=== PATIENT | male | born 1940 | race African-American/Black ===

== ENCOUNTER 2016-10-31 14:09 | Inpatient (IN) | payer MEDICARE, MEDICAID ==
[~2016-10-31] VITALS: Ht 177.8 cm; Wt 79.4 kg
[~2016-10-31 14:09] MED LIST: ANTIVERT25 MG ORAL; CARDIZEM90 MG ORAL; ECOTRIN81 MG ORAL; MIRALAX17 GM ORAL; PROAIR HFA8.5 GM INH
[2016-10-31] MEDS ORDERED: LISINOPRIL5 MG ORAL (14:58)
[2016-10-31] MEDS ORDERED: METOPROLOL SUCC25 MG ORAL (14:58)
[2016-10-31 15:15] VITALS: BP 139/77
[2016-10-31] MEDS ORDERED: Ketorolac 30mg Inj IV ONE (16:00)
[2016-10-31] MEDS ORDERED: Morphine Sulfate 2mg/ml Inj IVP ONE (16:00)
[2016-10-31 17:11] LABS: BASOPHILS % (AUTO) 2.1 % (0.0-2.0); EOSINOPHILS % (AUTO) 1.3 % (0.0-3.0); LYMPHOCYTES % (AUTO) 21.8 % (20.0-45.0); MEAN CORPUSCULAR HGB CONC 34.5 G/DL (32.0-36.0); MEAN CORPUSCULAR VOLUME 90 FL (80-99); MONOCYTES % (AUTO) 11.2 % (1.0-10.0); NEUTROPHILS % (AUTO) 63.6 % (45.0-75.0); PLATELET COUNT 176 K/UL (150-450); RED BLOOD COUNT 4.08 M/UL (4.70-6.10); RED CELL DISTRIBUTION WIDTH 11.6 % (11.6-14.8); WHITE BLOOD COUNT 4.8 K/UL (4.8-10.8)
[2016-10-31 17:12] LABS: APPEARANCE,URINE CLEAR; KETONES,URINE NEGATIVE (NEGATIVE); LEUKOCYTE ESTERASE ,URINE NEGATIVE (NEGATIVE); NITRITE,URINE NEGATIVE (NEGATIVE); PH,URINE 6.5 (4.5-8.0); PROTEIN,URINE NEGATIVE (NEGATIVE); UROBILINOGEN,URINE NORMAL MG/DL (0.0-1.0)
[2016-10-31 17:27] LABS: PROTHROMBIN TIME 10.3 SEC (9.30-11.50)
[2016-10-31 17:29] VITALS: BP 148/91
[2016-10-31 17:31] LABS: ALANINE AMINOTRANSFERASE 15 U/L (3-41); ALBUMIN/GLOBULIN RATIO 1.1 (1.0-2.7); ANION GAP 13 (5-15); ASPARTATE AMINO TRANSFERASE 31 U/L (5-40); CALCIUM 9.2 mg/dL (8.6-10.2); CARBON DIOXIDE 27 mEQ/L (20-30); CHLORIDE 103 mEQ/L (98-107); CREATININE 1.3 mg/dL (0.7-1.2); HEMOLYSIS 76; POTASSIUM 4.7 mEQ/L (3.4-4.9); SODIUM 143 mEQ/L (135-145); TOTAL PROTEIN 6.5 g/dL (6.6-8.7); TROPONIN I < 0.30 ng/mL (<=0.30)
--- NOTE | 2016-10-31 17:40 | Diagnostic Imaging Report ---
Indications: Altered metal status, fall x1 day Technique: Spiral acquisitions obtained through the brain. Angled axial and coronal 5 x 5 mm slices were reconstructed. Total dose length product 1386 mGycm. CTDI vol(s) 70 mGy Comparison: 04/16/2015 Findings: No acute hemorrhage or edema. No mass effect or midline shift. Normal size for age ventricles and extra-axial CSF spaces. There is mild periventricular deep white matter chronic ischemic change. The calvarium is intact. There is minimal ethmoid sinus disease. No significant interim change Impression: Mild age-related changes. Negative for acute intracranial bleed or mass effect. The CT scanner at [facility] is accredited by the [employer] and the scans are performed using protocols designed to limit radiation exposure to as low as reasonably achievable to attain images of sufficient resolution adequate for diagnostic evaluation.
--- NOTE | 2016-10-31 18:05 | Diagnostic Imaging Report ---
Indication: TRAUMA, chest pain Technique: One view of the chest Comparison: 04/16/2015 Findings: Left chest bifocal pacemaker again demonstrated. The lungs and pleural spaces are clear. The heart size is normal. No significant change Impression: No acute process
--- NOTE | 2016-10-31 18:08 | Diagnostic Imaging Report ---
Indication: TRAUMA Technique: 2 views of the right hip, one view the pelvis Comparison: None Findings: Questionable lucency is seen through the right femoral head neck junction. No definite pelvic fracture. There are degenerative changes of the lumbosacral junction. The joint spaces are preserved. The left hip appears intact. Impression: Questionable lucency through the right femoral head neck junction, probably representing overlying soft tissues but fracture not completely excludable. Consider cross-sectional imaging for further evaluation if there is high clinical suspicion Findings previously discussed by phone with Dr. Walters in the emergency room
[2016-10-31] MEDS ORDERED: Mylanta II UD 30ml ORAL PRN (18:45)
[2016-10-31] MEDS ORDERED: LORazepam Inj 2mg/ml 1ml IV PRN (18:45)
[2016-10-31] MEDS ORDERED: Nitroglycerin Subl 0.4mg tab (Bottle Of 25) SL PRN (18:45)
[2016-10-31] MEDS ORDERED: Miralax 17gm pkt ORAL PRN (18:45)
[2016-10-31] MEDS ORDERED: Morphine Sulfate 2mg/ml Inj IVP PRN (18:45)
[2016-10-31] MEDS ORDERED: DuoNeb 0.5-3(2.5)mg/3ml neb HHN PRN (18:45)
[2016-10-31] MEDS: Heparin 5000 units/ml inj SUBQ SCH (22:00)
[2016-11-01 00:13] VITALS: BP 139/81
--- NOTE | 2016-11-01 03:34 | Emergency Room Report ---
History of Present Illness General Chief Complaint: Multiple Trauma/Fall Source: Patient, Family Member Present Illness HPI Patient with multiple falling episodes over past few days. Increased weakness. Pain in R hip, R flank and also R chest wall. No medication taken. Pain now 10 /10 mostly ribs and hip. Denies head trauma. Falling due to several factors but mainly c/o weak and numb on R side. Pain is sharp and aching, constant and worse with movement and weight bearing. See below regarding prior weakness. Now c/o numbness of R arm and leg. Also c/o pain in groin/perineum. No rash or dysuria. No trauma to that area. Slight ARIAS. Recently, weakness due to spinal stenosis. Consideration for back operation though concern about medical stability. No incontinence. They state PMD aware of this problem. No fevers, cough. Some SOB with exertion. No rashes. Allergies: Coded Allergies: No Known Allergies (Verified Allergy, Unknown, 07/04/09) Patient History Past Medical History: see triage record Past Surgical History: pacemaker Social History: Denies: smoking Social History Narrative home by self. Here with daughters. Reviewed Nursing Documentation: PMH: Agreed, PSxH: Agreed Nursing Documentation-PMH Past Medical History: Deferred Hx Cardiac Problems: Yes Hx Hypertension: Yes Hx Pacemaker: Yes Hx Asthma: Yes Hx Cancer: Yes Hx Gastrointestinal Problems: No Hx Neurological Problems: Yes Hx Cerebrovascular Accident: Yes Hx Dizziness: Yes Review of Systems All Other Systems: negative except mentioned in HPI Physical Exam Vital Signs Date Time Temp Pulse Resp B/P Pulse Ox O2 Delivery O2 Flow Rate FiO2 10/31/16 14:50 97.9 66 20 159/71 100 Room Air 10/31/16 20:50 21 Sp02 EP Interpretation: reviewed, normal General Appearance: well appearing, no apparent distress, GCS 15 Head: normocephalic, atraumatic Eyes: bilateral eye EOMI, bilateral eye PERRL, bilateral eye normal inspection ENT: moist mucus membranes Neck: supple Respiratory: lungs clear, normal breath sounds, other - R lower chest wall tenderness, no crepetence or referred pain (almost more in flank area) Cardiovascular #1: regular rate, rhythm Cardiovascular #2: 2+ radial (R) Gastrointestinal: normal inspection, normal bowel sounds, no mass, non- distended, no guarding, no rebound, other - Slight R flank tenderness Genitourinary: normal inspection, penis normal, other - perineum not tender Musculoskeletal: digits/nails normal, normal range of motion - with some pain with SLR R, tender - R hip Neurologic: oriented x3, behavioral health therapist III-XII nml as tested, motor strength/tone normal , DTRs symmetric, cerebellar normal, speech normal, sensory deficit - subjective R side (then reports L arm also), other - not observe gait Psychiatric: mood/affect normal Skin: normal inspection, warm/dry, other - no bruises noted Medical Decision Making Diagnostic Impression: Primary Impression: Multiple injuries due to trauma Additional Impressions: CVA (cerebral vascular accident) Qualified Codes: I63.9 - Cerebral infarction, unspecified Spinal stenosis Qualified Codes: M48.07 - Spinal stenosis, lumbosacral region ER Course Patient presents with falls due to weakness and numbness on R side which for 2- 3 days is worse,. Ddx: cva, spinal stenosis, occult infection, PARTS PROCESSOR process, electrolyte abnormality, fractures amongst others. Emergent evaluation with labs, CT, CXR, EKG. Treatment with observation and analgesia. Labs unremarkable except for mild renal insufficiency. CTs with DJD and spinal stenosis. No bleed or masses. Patient clinically with CVA versus spinal stenosis with weakness. Will be unable to perform MRI with pacer so neuro consult important. Improved pain with analgesia. Patient not safe to return to home by self. Will need neuro eval. and prob placement in rehab. Admit telemetry Dr. Mancera. Laboratory Tests Test 10/31/16 16:45 White Blood Count 4.8 K/UL (4.8-10.8) Red Blood Count 4.08 M/UL (4.70-6.10) L Hemoglobin 12.6 G/DL (14.2-18.0) L Hematocrit 36.7 % (42.0-52.0) L Mean Corpuscular Volume 90 FL (80-99) Mean Corpuscular Hemoglobin 31.0 PG (27.0-31.0) Mean Corpuscular Hemoglobin Concent 34.5 G/DL (32.0-36.0) Red Cell Distribution Width 11.6 % (11.6-14.8) Platelet Count 176 K/UL (150-450) Mean Platelet Volume 7.0 FL (6.5-10.1) Neutrophils (%) (Auto) 63.6 % (45.0-75.0) Lymphocytes (%) (Auto) 21.8 % (20.0-45.0) Monocytes (%) (Auto) 11.2 % (1.0-10.0) H Eosinophils (%) (Auto) 1.3 % (0.0-3.0) Basophils (%) (Auto) 2.1 % (0.0-2.0) H Prothrombin Time 10.3 SEC (9.30-11.50) Prothrombin Time INR 1.0 (0.9-1.1) PTT 26 SEC (23-33) Urine Color Pale yellow Urine Appearance Clear Urine pH 6.5 (4.5-8.0) Urine Specific [place] 1.005 (1.005-1.035) Urine Protein Negative (NEGATIVE) Urine Glucose (UA) Negative (NEGATIVE) Urine Ketones Negative (NEGATIVE) Urine Occult Blood Negative (NEGATIVE) Urine Nitrite Negative (NEGATIVE) Urine Bilirubin Negative (NEGATIVE) Urine Urobilinogen Normal MG/DL (0.0-1.0) Urine Leukocyte Esterase Negative (NEGATIVE) Sodium Level 143 mEQ/L (135-145) Potassium Level 4.7 mEQ/L (3.4-4.9) Chloride Level 103 mEQ/L (98-107) Carbon Dioxide Level 27 mEQ/L (20-30) Anion Gap 13 (5-15) Blood Urea Nitrogen 18 mg/dL (7-23) Creatinine 1.3 mg/dL (0.7-1.2) H Estimate Glomerular Filtration Rate mL/min (>60) Glucose Level 90 mg/dL (74-106) Calcium Level 9.2 mg/dL (8.6-10.2) Total Bilirubin 0.3 mg/dL (0.0-1.2) Aspartate Amino Transferase (AST) 31 U/L (5-40) Alanine Aminotransferase (ALT) 15 U/L (3-41) Alkaline Phosphatase 61 U/L (40-129) Total Creatine Kinase 329 U/L (38-174) H Troponin I < 0.30 ng/mL (<=0.30) Pro-B-Type Natriuretic Peptide 391 pg/mL (0-450) Total Protein 6.5 g/dL (6.6-8.7) L Albumin 3.5 g/dL (3.5-5.2) Globulin 3.0 g/dL Albumin/Globulin Ratio 1.1 (1.0-2.7) EKG Diagnostic Results Rate: other - paced Rhythm: other - paced ST Segments: no acute changes Rhythm Strip Diag. Results EP Interpretation: yes Rhythm: no PVC's, no ectopy, other - paced Chest X-Ray Diagnostic Results EP Interpretation: Yes Findings: no consolidation, no effusion, no pneumothorax, other - pacer L Number of Views: 1 Other X-Ray Diagnostic Results Other X-Ray Diagnostic Results #1: X-Ray Ordered: pelvis EP Interpretation: Yes Findings: no fractures, no dislocation, no soft tissue swelling, other - djd Number of Views: 1 Other X-Ray Diagnostic Results #2: X-Ray Ordered: R hip EP Interpretation: Yes Findings: no fractures, no dislocation, no soft tissue swelling, other - djd (radiologist wants CT) Number of Views: 2 CT/MRI/US Diagnostic Results CT/MRI/US Diagnostic Results #1: Imaging Test Ordered: head Impression atrophy CT/MRI/US Diagnostic Results #2: Imaging Test Ordered: R hip Impression no fx, djd CT/MRI/US Diagnostic Results #3: Imaging Test Ordered: LS spine Impression Findings: No acute fractures. No dislocations. Bony alignment is normal. Vertebral body heights are preserved. At T11-12, there is mild neural foraminal stenosis due to facet hypertrophy. The disc space is preserved. At T12-L1 there are is bilateral facet degeneration. The disc space is preserved. No significant disc bulge protrusion, spinal stenosis, or neural foraminal stenosis. At L1-2, no significant disc bulge or protrusion, spinal stenosis, or neural foraminal stenosis. There is bilateral facet degeneration. At L2-3, there is vacuum disc formation. Mild circumferential annular bulge results in mild narrowing of the spinal canal. Facet degeneration results in mild left and moderate right neural foraminal stenosis. At L3-4, the disc space is preserved. There is vacuum formation. Mild circumferential annular bulge and ligamentum flavum hypertrophy results in mild central canal stenosis. There is mild narrowing of the neural foramina due to extensive facet proliferation. At L4-5, posterior disc bulge/osteophyte complex results in mild narrowing of the spinal canal. There is moderate neural foraminal stenosis due to facet degeneration. At L5-S1, no significant disc bulge or protrusion or spinal stenosis. Facet degenerative results in mild bilateral neural foraminal narrowing. The included extraspinal soft tissues are remarkable for the presence of colonic diverticulosis. What is probably a parenchymal calcification is seen in the right kidney. There is a 1 cm exophytic lesion of the posterior left kidney which demonstrates nonspecific attenuation, possibly but not definitively a hyperdense cyst. Impression: No acute bony trauma Degenerative changes, as detailed on a level by level basis above 1 cm exophytic lesion of the posterior left kidney. Possibly but not definitively a hyperdense cyst. Evaluation with renal ultrasound is recommended. Colonic diverticulosis incidentally noted Last Vital Signs Date Time Temp Pulse Resp B/P Pulse Ox O2 Delivery O2 Flow Rate FiO2 11/01/16 00:13 98.6 64 20 139/81 98 Room Air 10/31/16 20:50 21 Status: improved Disposition: ADMITTED INPATIENT Condition: Serious Referrals: Jayant Mancera MD (PCP) Naveed Walters M.D. Nov 01, 2016 03:34
[2016-11-01 08:00] VITALS: BP 153/78
[2016-11-01 08:26] LABS: MEAN CORPUSCULAR HEMOGLOBIN 30.1 PG (27.0-31.0); MEAN CORPUSCULAR HGB CONC 33.6 G/DL (32.0-36.0); MEAN CORPUSCULAR VOLUME 90 FL (80-99); MEAN PLATELET VOLUME 7.3 FL (6.5-10.1); PLATELET COUNT 202 K/UL (150-450); RED BLOOD COUNT 4.17 M/UL (4.70-6.10); WHITE BLOOD COUNT 3.3 K/UL (4.8-10.8)
[2016-11-01 08:30] LABS: PROTHROMBIN TIME 10.4 SEC (9.30-11.50)
--- NOTE | 2016-11-01 08:31 | Diagnostic Imaging Report ---
Indication: TRAUMA, fall, right hip pain Technique: No contrast, per trauma protocol. Spiral acquisitions obtained through the pelvis. Multiplanar reconstructions were generated. Total dose length product 351 mGycm. CTDIvol(s) 11 mGy. Radiation dose was minimized using automated exposure control Comparison: None Findings: No evidence of acute fracture or dislocation. There are mild degenerative proliferative changes of both hip joints. There are extensive degenerative changes of the lumbosacral junction. There is ankylosis of the upper sacroiliac joints. The included pelvic viscera demonstrate colonic diverticulosis. Impression: No acute bony trauma Degenerative changes, as described Colonic diverticulosis This agrees with the preliminary interpretation provided overnight by Dr. Nguyen The CT scanner at [facility] is accredited by the [employer] and the scans are performed using protocols designed to limit radiation exposure to as low as reasonably achievable to attain images of sufficient resolution adequate for diagnostic evaluation.
--- NOTE | 2016-11-01 08:36 | Diagnostic Imaging Report ---
Indications: History of fall x1 day, low back pain Technique: Spiral acquisitions obtained through the lumbar spine. Multiplanar reconstructions were generated. No IV contrast utilized. Total dose length product 501 mGycm. CTDIvol(s) 13 mGy Comparison: None Findings: No acute fractures. No dislocations. Bony alignment is normal. Vertebral body heights are preserved. At T11-12, there is mild neural foraminal stenosis due to facet hypertrophy. The disc space is preserved. At T12-L1 there are is bilateral facet degeneration. The disc space is preserved. No significant disc bulge protrusion, spinal stenosis, or neural foraminal stenosis. At L1-2, no significant disc bulge or protrusion, spinal stenosis, or neural foraminal stenosis. There is bilateral facet degeneration. At L2-3, there is vacuum disc formation. Mild circumferential annular bulge results in mild narrowing of the spinal canal. Facet degeneration results in mild left and moderate right neural foraminal stenosis. At L3-4, the disc space is preserved. There is vacuum formation. Mild circumferential annular bulge and ligamentum flavum hypertrophy results in mild central canal stenosis. There is mild narrowing of the neural foramina due to extensive facet proliferation. At L4-5, posterior disc bulge/osteophyte complex results in mild narrowing of the spinal canal. There is moderate neural foraminal stenosis due to facet degeneration. At L5-S1, no significant disc bulge or protrusion or spinal stenosis. Facet degenerative results in mild bilateral neural foraminal narrowing. The included extraspinal soft tissues are remarkable for the presence of colonic diverticulosis. What is probably a parenchymal calcification is seen in the right kidney. There is a 1 cm exophytic lesion of the posterior left kidney which demonstrates nonspecific attenuation, possibly but not definitively a hyperdense cyst. Impression: No acute bony trauma Degenerative changes, as detailed on a level by level basis above 1 cm exophytic lesion of the posterior left kidney. Possibly but not definitively a hyperdense cyst. Evaluation with renal ultrasound is recommended. Colonic diverticulosis incidentally noted The CT scanner at [facility] is accredited by the [employer] and the scans are performed using protocols designed to limit radiation exposure to as low as reasonably achievable to attain images of sufficient resolution adequate for diagnostic evaluation.
[2016-11-01 08:51] LABS: ALANINE AMINOTRANSFERASE 13 U/L (3-41); ALBUMIN/GLOBULIN RATIO 1.2 (1.0-2.7); ANION GAP 14 (5-15); ASPARTATE AMINO TRANSFERASE 22 U/L (5-40); CALCIUM 8.9 mg/dL (8.6-10.2); CARBON DIOXIDE 27 mEQ/L (20-30); CHLORIDE 103 mEQ/L (98-107); CHOLESTEROL 198 mg/dL (< 200); CHOLESTEROL/HDL RATIO 3.2 (3.3-4.4); CREATININE 1.5 mg/dL (0.7-1.2); HEMOLYSIS 6; LDL CHOLESTEROL (CALC.) 123 mg/dL (60-99); POTASSIUM 3.8 mEQ/L (3.4-4.9); SODIUM 144 mEQ/L (135-145); TOTAL PROTEIN 6.1 g/dL (6.6-8.7)
[2016-11-01] MEDS ORDERED: Diltiazem CD 180mg cap ORAL SCH (09:00)
[2016-11-01] MEDS: Aspirin EC 81mg tab ORAL SCH (09:46)
[2016-11-01] MEDS: Heparin 5000 units/ml inj SUBQ SCH ×2 (09:47→21:04)
[2016-11-01] MEDS: Lisinopril 10mg tab ORAL SCH (09:50)
[2016-11-01 10:42] LABS: BAND NEUTROPHILS % (MANUAL) 0 % (0-8); BASOPHILS % (MANUAL) 1 % (0-2); EOSINOPHILS % (MANUAL) 2 % (0-3); LYMPHOCYTES % (MANUAL) 38 % (20-45); NEUTROPHILS % (MANUAL) 46 % (45-75); PLATELET ESTIMATE ADEQUATE; PLATELET MORPHOLOGY NORMAL; TOTAL CELLS COUNTED 100
--- NOTE | 2016-11-01 14:09 | Consultation ---
History of Present Illness General Date patient seen: Nov 01, 2016 Chief Complaint: Multiple Trauma/Fall Reason for Consultation: chest pain Present Illness HPI 76 year old male with hx of pace maker, spinal stenosis, brought in by paramedics because of multiple falling episodes over past few days. Increased weakness. Pain in R hip, R flank and also R chest wall after falling from bed. His right chest pain is worse with any movement. No fevers, cough. Some SOB with exertion. No rashes. Allergies: Coded Allergies: No Known Allergies (Verified Allergy, Unknown, 07/04/09) Medication History Scheduled Albuterol Sulfate* (Proair Hfa*), 2 PUFFS INH Q6H, (Reported) Aspirin (Ecotrin), 81 MG ORAL DAILY Lisinopril (Lisinopril*), Unknown Dose ORAL DAILY, (Reported) Meclizine Hcl* (Antivert*), 25 MG ORAL Q8HR Metoprolol Succinate* (Metoprolol Succinate*), Unknown Dose ORAL DAILY, ( Reported) Scheduled PRN Polyethylene Glycol* (Miralax*), 17 GM ORAL DAILYPRN PRN for Constipation Miscellaneous Medications Diltiazem HCl (Diltiazem HCl), 180 MG ORAL, (Reported) Patient History Healthcare decision maker pt alert and oriented Resuscitation status Full Code Advanced Directive on File No Past Medical/Surgical History Past Medical/Surgical History: (1) Spinal stenosis (2) CVA (cerebral vascular accident) Review of Systems Constitutional: Reports: weakness Musculoskeletal: Reports: other - left groin pain All Other Systems: negative except mentioned in HPI Physical Exam Lines, tubes and drains: peripheral, central line HEENT: normocephalic, atraumatic Neck: non-tender, normal alignment Respiratory/Chest: chest wall non-tender, lungs clear Breasts: no masses Cardiovascular/Chest: normal peripheral pulses Abdomen: normal bowel sounds, non tender Genitourinary/Rectal: normal genital exam Extremities: normal range of motion Last 24 Hour Vital Signs Date Time Temp Pulse Resp B/P Pulse Ox O2 Delivery O2 Flow Rate FiO2 11/01/16 09:50 62 153/78 11/01/16 09:50 153/78 11/01/16 09:50 62 153/78 11/01/16 08:00 95.9 55 17 153/78 95 Room Air 60 11/01/16 07:40 68 18 Room Air 21 11/01/16 04:00 60 11/01/16 00:13 98.6 64 20 139/81 98 Room Air 11/01/16 00:00 60 10/31/16 20:50 62 18 Room Air 21 10/31/16 19:50 63 17 122/79 100 Room Air 10/31/16 17:29 64 16 148/91 99 Room Air 10/31/16 17:02 98.3 10/31/16 17:02 98.3 10/31/16 15:15 98.3 63 19 139/77 100 Room Air 10/31/16 14:50 97.9 66 20 159/71 100 Room Air Intake and Output 10/31/16 11/01/16 19:00 07:00 Output Total 600 ml Balance -600 ml Output Urine Total 600 ml Laboratory Tests Test 10/31/16 16:45 11/01/16 07:47 White Blood Count 4.8 K/UL (4.8-10.8) 3.3 K/UL (4.8-10.8) L Red Blood Count 4.08 M/UL (4.70-6.10) L 4.17 M/UL (4.70-6.10) L Hemoglobin 12.6 G/DL (14.2-18.0) L 12.6 G/DL (14.2-18.0) L Hematocrit 36.7 % (42.0-52.0) L 37.4 % (42.0-52.0) L Mean Corpuscular Volume 90 FL (80-99) 90 FL (80-99) Mean Corpuscular Hemoglobin 31.0 PG (27.0-31.0) 30.1 PG (27.0-31.0) Mean Corpuscular Hemoglobin Concent 34.5 G/DL (32.0-36.0) 33.6 G/DL (32.0-36.0) Red Cell Distribution Width 11.6 % (11.6-14.8) 12.0 % (11.6-14.8) Platelet Count 176 K/UL (150-450) 202 K/UL (150-450) Mean Platelet Volume 7.0 FL (6.5-10.1) 7.3 FL (6.5-10.1) Neutrophils (%) (Auto) 63.6 % (45.0-75.0) % (45.0-75.0) Lymphocytes (%) (Auto) 21.8 % (20.0-45.0) % (20.0-45.0) Monocytes (%) (Auto) 11.2 % (1.0-10.0) H % (1.0-10.0) Eosinophils (%) (Auto) 1.3 % (0.0-3.0) % (0.0-3.0) Basophils (%) (Auto) 2.1 % (0.0-2.0) H % (0.0-2.0) Prothrombin Time 10.3 SEC (9.30-11.50) 10.4 SEC (9.30-11.50) Prothromb Time International Ratio 1.0 (0.9-1.1) 1.0 (0.9-1.1) Activated Partial Thromboplast Time 26 SEC (23-33) 27 SEC (23-33) Urine Color Pale yellow Urine Appearance Clear Urine pH 6.5 (4.5-8.0) Urine Specific [place] 1.005 (1.005-1.035) Urine Protein Negative (NEGATIVE) Urine Glucose (UA) Negative (NEGATIVE) Urine Ketones Negative (NEGATIVE) Urine Occult Blood Negative (NEGATIVE) Urine Nitrite Negative (NEGATIVE) Urine Bilirubin Negative (NEGATIVE) Urine Urobilinogen Normal MG/DL (0.0-1.0) Urine Leukocyte Esterase Negative (NEGATIVE) Sodium Level 143 mEQ/L (135-145) 144 mEQ/L (135-145) Potassium Level 4.7 mEQ/L (3.4-4.9) 3.8 mEQ/L (3.4-4.9) Chloride Level 103 mEQ/L (98-107) 103 mEQ/L (98-107) Carbon Dioxide Level 27 mEQ/L (20-30) 27 mEQ/L (20-30) Anion Gap 13 (5-15) 14 (5-15) Blood Urea Nitrogen 18 mg/dL (7-23) 22 mg/dL (7-23) Creatinine 1.3 mg/dL (0.7-1.2) H 1.5 mg/dL (0.7-1.2) H Estimat Glomerular Filtration Rate mL/min (>60) mL/min (>60) Glucose Level 90 mg/dL (74-106) 87 mg/dL (74-106) Calcium Level 9.2 mg/dL (8.6-10.2) 8.9 mg/dL (8.6-10.2) Total Bilirubin 0.3 mg/dL (0.0-1.2) 0.3 mg/dL (0.0-1.2) Aspartate Amino Transf (AST/SGOT) 31 U/L (5-40) 22 U/L (5-40) Alanine Aminotransferase (ALT/SGPT) 15 U/L (3-41) 13 U/L (3-41) Alkaline Phosphatase 61 U/L (40-129) 59 U/L (40-129) Total Creatine Kinase 329 U/L (38-174) H Troponin I < 0.30 ng/mL (<=0.30) Pro-B-Type Natriuretic Peptide 391 pg/mL (0-450) Total Protein 6.5 g/dL (6.6-8.7) L 6.1 g/dL (6.6-8.7) L Albumin 3.5 g/dL (3.5-5.2) 3.4 g/dL (3.5-5.2) L Globulin 3.0 g/dL 2.7 g/dL Albumin/Globulin Ratio 1.1 (1.0-2.7) 1.2 (1.0-2.7) Differential Total Cells Counted 100 Neutrophils % (Manual) 46 % (45-75) Lymphocytes % (Manual) 38 % (20-45) Monocytes % (Manual) 13 % (1-10) H Eosinophils % (Manual) 2 % (0-3) Basophils % (Manual) 1 % (0-2) Band Neutrophils 0 % (0-8) Platelet Estimate Adequate Platelet Morphology Normal Red Blood Cell Morphology Normal Triglycerides Level 70 mg/dL (< 150) Cholesterol Level 198 mg/dL (< 200) LDL Cholesterol 123 mg/dL (60-99) H HDL Cholesterol 61 mg/dL (> 60) H Cholesterol/HDL Ratio 3.2 (3.3-4.4) L Thyroid Stimulating Hormone (TSH) 1.760 uIU/mL (0.300-4.500) Height (Feet): 5 Height (Inches): 10.00 Weight (Pounds): 175 Medications Current Medications Medications (Trade) Dose Ordered Sig/Gloria Route PRN Reason Start Time Stop Time Status Last Admin Dose Admin Acetaminophen (Tylenol) 650 mg Q4H PRN ORAL fever 10/31/16 18:45 11/30/16 18:44 Al Hydroxide/Mg Hydroxide (Mylanta II) 30 ml Q6H PRN ORAL dyspepsia 10/31/16 18:45 11/30/16 18:44 Albuterol/ Ipratropium (DuoNeb 0.5-3(2.5)mg/3ml) 3 ml Q4H PRN HHN Shortness of Breath 10/31/16 18:45 11/05/16 18:44 Aspirin (Ecotrin) 81 mg DAILY ORAL 11/01/16 09:00 12/01/16 08:59 11/01/16 09:46 Clonidine HCl (Catapres) 0.1 mg Q4H PRN ORAL SBP > 160 10/31/16 18:45 11/30/16 18:44 Dextrose (Dextrose 50%) STAT PRN IV Hypoglycemia 10/31/16 18:45 11/30/16 18:44 Diltiazem HCl (Cardizem CD) 180 mg DAILY ORAL 11/01/16 09:00 12/01/16 08:59 11/01/16 09:50 Heparin Sodium (Porcine) (Heparin 5000 units/ml) 5,000 units EVERY 12 HOURS SUBQ 10/31/16 21:00 11/30/16 20:59 11/01/16 09:47 Lisinopril (Zestril) 10 mg DAILY ORAL 11/01/16 09:00 12/01/16 08:59 11/01/16 09:50 Lorazepam (Ativan 2mg/ml 1ml) 0.5 mg Q4H PRN IV For Anxiety 10/31/16 18:45 11/07/16 18:44 Metoprolol Succinate (Toprol XL) 25 mg DAILY ORAL 11/01/16 09:00 12/01/16 08:59 11/01/16 09:50 Morphine Sulfate (Morphine Sulfate) 1 mg Q4H PRN IVP For Pain 7-10 10/31/16 18:45 11/07/16 18:44 Nitroglycerin (Ntg) 0.4 mg Q5M X 3 DOSES PRN SL Prn Chest Pain 10/31/16 18:45 11/30/16 18:44 Ondansetron HCl (Zofran) 4 mg Q6H PRN IVP Nausea & Vomiting 10/31/16 18:45 11/30/16 18:44 Polyethylene Glycol (Miralax) 17 gm HSPRN PRN ORAL Constipation 10/31/16 18:45 11/30/16 18:44 Temazepam (Restoril) 15 mg HSPRN PRN ORAL Insomnia 10/31/16 18:45 11/07/16 18:44 Assessment/Plan Problem List: (1) ACS (acute coronary syndrome) ICD Codes: I24.9 - Acute ischemic heart disease, unspecified SNOMED: 314829703 (2) Dizziness ICD Codes: R42 - Dizziness and giddiness SNOMED: 096404329 (3) Multiple injuries due to trauma ICD Codes: T07 - Unspecified multiple injuries SNOMED: 852147946 (4) Spinal stenosis ICD Codes: M48.00 - Spinal stenosis, site unspecified SNOMED: 72612102 Qualifiers: Qualified Codes: M48.07 - Spinal stenosis, lumbosacral region (5) CVA (cerebral vascular accident) ICD Codes: I63.9 - Cerebral infarction, unspecified SNOMED: 166627239 Qualifiers: Qualified Codes: I63.9 - Cerebral infarction, unspecified (6) Pacemaker ICD Codes: Z95.0 - Presence of cardiac pacemaker SNOMED: 003258732, 231265307 Assessment/Plan telemetry monitoring cardio evaluation symptomatic treatment check out pace maker pt/ot titrate fio2 to sat of 92% dvt prophylaxis JAYDE ADAMS Nov 01, 2016 14:07
--- NOTE | 2016-11-01 14:42 | Neurology Progress Note ---
Objective Physical Exam Last Vital Signs Date Time Temp Pulse Resp B/P Pulse Ox O2 Delivery O2 Flow Rate FiO2 11/01/16 12:00 60 11/01/16 09:50 153/78 11/01/16 08:00 95.9 17 95 Room Air 11/01/16 07:40 21 Laboratory Tests Test 10/31/16 16:45 11/01/16 07:47 White Blood Count 4.8 K/UL (4.8-10.8) 3.3 K/UL (4.8-10.8) L Red Blood Count 4.08 M/UL (4.70-6.10) L 4.17 M/UL (4.70-6.10) L Hemoglobin 12.6 G/DL (14.2-18.0) L 12.6 G/DL (14.2-18.0) L Hematocrit 36.7 % (42.0-52.0) L 37.4 % (42.0-52.0) L Mean Corpuscular Volume 90 FL (80-99) 90 FL (80-99) Mean Corpuscular Hemoglobin 31.0 PG (27.0-31.0) 30.1 PG (27.0-31.0) Mean Corpuscular Hemoglobin Concent 34.5 G/DL (32.0-36.0) 33.6 G/DL (32.0-36.0) Red Cell Distribution Width 11.6 % (11.6-14.8) 12.0 % (11.6-14.8) Platelet Count 176 K/UL (150-450) 202 K/UL (150-450) Mean Platelet Volume 7.0 FL (6.5-10.1) 7.3 FL (6.5-10.1) Neutrophils (%) (Auto) 63.6 % (45.0-75.0) % (45.0-75.0) Lymphocytes (%) (Auto) 21.8 % (20.0-45.0) % (20.0-45.0) Monocytes (%) (Auto) 11.2 % (1.0-10.0) H % (1.0-10.0) Eosinophils (%) (Auto) 1.3 % (0.0-3.0) % (0.0-3.0) Basophils (%) (Auto) 2.1 % (0.0-2.0) H % (0.0-2.0) Prothrombin Time 10.3 SEC (9.30-11.50) 10.4 SEC (9.30-11.50) Prothromb Time International Ratio 1.0 (0.9-1.1) 1.0 (0.9-1.1) Activated Partial Thromboplast Time 26 SEC (23-33) 27 SEC (23-33) Urine Color Pale yellow Urine Appearance Clear Urine pH 6.5 (4.5-8.0) Urine Specific [place] 1.005 (1.005-1.035) Urine Protein Negative (NEGATIVE) Urine Glucose (UA) Negative (NEGATIVE) Urine Ketones Negative (NEGATIVE) Urine Occult Blood Negative (NEGATIVE) Urine Nitrite Negative (NEGATIVE) Urine Bilirubin Negative (NEGATIVE) Urine Urobilinogen Normal MG/DL (0.0-1.0) Urine Leukocyte Esterase Negative (NEGATIVE) Sodium Level 143 mEQ/L (135-145) 144 mEQ/L (135-145) Potassium Level 4.7 mEQ/L (3.4-4.9) 3.8 mEQ/L (3.4-4.9) Chloride Level 103 mEQ/L (98-107) 103 mEQ/L (98-107) Carbon Dioxide Level 27 mEQ/L (20-30) 27 mEQ/L (20-30) Anion Gap 13 (5-15) 14 (5-15) Blood Urea Nitrogen 18 mg/dL (7-23) 22 mg/dL (7-23) Creatinine 1.3 mg/dL (0.7-1.2) H 1.5 mg/dL (0.7-1.2) H Estimat Glomerular Filtration Rate mL/min (>60) mL/min (>60) Glucose Level 90 mg/dL (74-106) 87 mg/dL (74-106) Calcium Level 9.2 mg/dL (8.6-10.2) 8.9 mg/dL (8.6-10.2) Total Bilirubin 0.3 mg/dL (0.0-1.2) 0.3 mg/dL (0.0-1.2) Aspartate Amino Transf (AST/SGOT) 31 U/L (5-40) 22 U/L (5-40) Alanine Aminotransferase (ALT/SGPT) 15 U/L (3-41) 13 U/L (3-41) Alkaline Phosphatase 61 U/L (40-129) 59 U/L (40-129) Total Creatine Kinase 329 U/L (38-174) H Troponin I < 0.30 ng/mL (<=0.30) Pro-B-Type Natriuretic Peptide 391 pg/mL (0-450) Total Protein 6.5 g/dL (6.6-8.7) L 6.1 g/dL (6.6-8.7) L Albumin 3.5 g/dL (3.5-5.2) 3.4 g/dL (3.5-5.2) L Globulin 3.0 g/dL 2.7 g/dL Albumin/Globulin Ratio 1.1 (1.0-2.7) 1.2 (1.0-2.7) Differential Total Cells Counted 100 Neutrophils % (Manual) 46 % (45-75) Lymphocytes % (Manual) 38 % (20-45) Monocytes % (Manual) 13 % (1-10) H Eosinophils % (Manual) 2 % (0-3) Basophils % (Manual) 1 % (0-2) Band Neutrophils 0 % (0-8) Platelet Estimate Adequate Platelet Morphology Normal Red Blood Cell Morphology Normal Triglycerides Level 70 mg/dL (< 150) Cholesterol Level 198 mg/dL (< 200) LDL Cholesterol 123 mg/dL (60-99) H HDL Cholesterol 61 mg/dL (> 60) H Cholesterol/HDL Ratio 3.2 (3.3-4.4) L Thyroid Stimulating Hormone (TSH) 1.760 uIU/mL (0.300-4.500) Impression/Recommendations Problems: (1) s/p mechanical fall (2) Multiple injuries due to trauma (3) probably cervical myelopathy, 2/2 cervical spinal stenosis Status: unchanged Recommendations #[id number] RAPHAEL CAMARA Nov 01, 2016 14:42
[2016-11-01] MEDS ORDERED: traMADol 50mg tab ORAL PRN (14:45)
[2016-11-01] MEDS ORDERED: Norco 5mg/325mg tab ORAL PRN (15:15)
--- NOTE | 2016-11-01 15:16 | History & Physical ---
History and Physical History & Physicial Dictated for Int Med-Dr Mancera no. [id number]. FOUZIA RAMIREZ Nov 01, 2016 15:16
[2016-11-01] MEDS ORDERED: Morphine Sulfate 2mg/ml Inj IVP PRN (15:30)
--- NOTE | 2016-11-01 15:40 | Cardiac Electrophysiology PN ---
Subjective Subjective [id number] Was in my office on 10/04/16 that showed pacer still less than 6 months to MRI LAD 70% stenosis by cath by me at [facility]. Schedule nuclear stress test in am. Objective Last 24 Hour Vital Signs Date Time Temp Pulse Resp B/P Pulse Ox O2 Delivery O2 Flow Rate FiO2 11/01/16 15:08 97.9 11/01/16 12:00 60 11/01/16 09:50 62 153/78 11/01/16 09:50 153/78 11/01/16 09:50 62 153/78 11/01/16 08:00 68 11/01/16 08:00 95.9 55 17 153/78 95 Room Air 60 11/01/16 07:40 68 18 Room Air 21 11/01/16 04:00 60 11/01/16 00:13 98.6 64 20 139/81 98 Room Air 11/01/16 00:00 60 10/31/16 20:50 62 18 Room Air 21 10/31/16 19:50 63 17 122/79 100 Room Air 10/31/16 17:29 64 16 148/91 99 Room Air 10/31/16 17:02 98.3 10/31/16 17:02 98.3 Intake and Output 10/31/16 11/01/16 19:00 07:00 Output Total 600 ml Balance -600 ml Output Urine Total 600 ml Laboratory Tests Test 10/31/16 16:45 11/01/16 07:47 White Blood Count 4.8 K/UL (4.8-10.8) 3.3 K/UL (4.8-10.8) L Red Blood Count 4.08 M/UL (4.70-6.10) L 4.17 M/UL (4.70-6.10) L Hemoglobin 12.6 G/DL (14.2-18.0) L 12.6 G/DL (14.2-18.0) L Hematocrit 36.7 % (42.0-52.0) L 37.4 % (42.0-52.0) L Mean Corpuscular Volume 90 FL (80-99) 90 FL (80-99) Mean Corpuscular Hemoglobin 31.0 PG (27.0-31.0) 30.1 PG (27.0-31.0) Mean Corpuscular Hemoglobin Concent 34.5 G/DL (32.0-36.0) 33.6 G/DL (32.0-36.0) Red Cell Distribution Width 11.6 % (11.6-14.8) 12.0 % (11.6-14.8) Platelet Count 176 K/UL (150-450) 202 K/UL (150-450) Mean Platelet Volume 7.0 FL (6.5-10.1) 7.3 FL (6.5-10.1) Neutrophils (%) (Auto) 63.6 % (45.0-75.0) % (45.0-75.0) Lymphocytes (%) (Auto) 21.8 % (20.0-45.0) % (20.0-45.0) Monocytes (%) (Auto) 11.2 % (1.0-10.0) H % (1.0-10.0) Eosinophils (%) (Auto) 1.3 % (0.0-3.0) % (0.0-3.0) Basophils (%) (Auto) 2.1 % (0.0-2.0) H % (0.0-2.0) Prothrombin Time 10.3 SEC (9.30-11.50) 10.4 SEC (9.30-11.50) Prothromb Time International Ratio 1.0 (0.9-1.1) 1.0 (0.9-1.1) Activated Partial Thromboplast Time 26 SEC (23-33) 27 SEC (23-33) Urine Color Pale yellow Urine Appearance Clear Urine pH 6.5 (4.5-8.0) Urine Specific [place] 1.005 (1.005-1.035) Urine Protein Negative (NEGATIVE) Urine Glucose (UA) Negative (NEGATIVE) Urine Ketones Negative (NEGATIVE) Urine Occult Blood Negative (NEGATIVE) Urine Nitrite Negative (NEGATIVE) Urine Bilirubin Negative (NEGATIVE) Urine Urobilinogen Normal MG/DL (0.0-1.0) Urine Leukocyte Esterase Negative (NEGATIVE) Sodium Level 143 mEQ/L (135-145) 144 mEQ/L (135-145) Potassium Level 4.7 mEQ/L (3.4-4.9) 3.8 mEQ/L (3.4-4.9) Chloride Level 103 mEQ/L (98-107) 103 mEQ/L (98-107) Carbon Dioxide Level 27 mEQ/L (20-30) 27 mEQ/L (20-30) Anion Gap 13 (5-15) 14 (5-15) Blood Urea Nitrogen 18 mg/dL (7-23) 22 mg/dL (7-23) Creatinine 1.3 mg/dL (0.7-1.2) H 1.5 mg/dL (0.7-1.2) H Estimat Glomerular Filtration Rate mL/min (>60) mL/min (>60) Glucose Level 90 mg/dL (74-106) 87 mg/dL (74-106) Calcium Level 9.2 mg/dL (8.6-10.2) 8.9 mg/dL (8.6-10.2) Total Bilirubin 0.3 mg/dL (0.0-1.2) 0.3 mg/dL (0.0-1.2) Aspartate Amino Transf (AST/SGOT) 31 U/L (5-40) 22 U/L (5-40) Alanine Aminotransferase (ALT/SGPT) 15 U/L (3-41) 13 U/L (3-41) Alkaline Phosphatase 61 U/L (40-129) 59 U/L (40-129) Total Creatine Kinase 329 U/L (38-174) H Troponin I < 0.30 ng/mL (<=0.30) Pro-B-Type Natriuretic Peptide 391 pg/mL (0-450) Total Protein 6.5 g/dL (6.6-8.7) L 6.1 g/dL (6.6-8.7) L Albumin 3.5 g/dL (3.5-5.2) 3.4 g/dL (3.5-5.2) L Globulin 3.0 g/dL 2.7 g/dL Albumin/Globulin Ratio 1.1 (1.0-2.7) 1.2 (1.0-2.7) Differential Total Cells Counted 100 Neutrophils % (Manual) 46 % (45-75) Lymphocytes % (Manual) 38 % (20-45) Monocytes % (Manual) 13 % (1-10) H Eosinophils % (Manual) 2 % (0-3) Basophils % (Manual) 1 % (0-2) Band Neutrophils 0 % (0-8) Platelet Estimate Adequate Platelet Morphology Normal Red Blood Cell Morphology Normal Triglycerides Level 70 mg/dL (< 150) Cholesterol Level 198 mg/dL (< 200) LDL Cholesterol 123 mg/dL (60-99) H HDL Cholesterol 61 mg/dL (> 60) H Cholesterol/HDL Ratio 3.2 (3.3-4.4) L Thyroid Stimulating Hormone (TSH) 1.760 uIU/mL (0.300-4.500) FATOUMATA WALTON Nov 01, 2016 15:40
[2016-11-01 16:00] VITALS: BP 149/85
[2016-11-01 20:00] VITALS: BP 146/78
--- NOTE | 2016-11-01 20:18 | History and Physical Report ---
DATE OF ADMISSION: 11/01/2016 CHIEF COMPLAINT: The patient is a 76-year-old male, who presents with a chief complaint of fall injury. HISTORY OF PRESENT ILLNESS: The patient states he was getting out of the bathtub on 10/30/2016. The patient has suffered a slip and fall in the bathtub. The patient struck the right side of his body. The patient is complaining of right rib pain. The patient presented to [facility]. The patient was admitted for fall and injury to rule out myocardial infarction versus cerebrovascular accident. REVIEW OF SYSTEMS: Constitutional: The patient denies weight loss or weight gain. The patient denies fevers or chills. HEENT: The patient denies ear or throat pain. The patient denies headache. Cardiovascular: The patient denies palpitations or chest pain. Chest: The patient denies wheeze or shortness of breath. The patient complains of right rib pain. Abdomen: The patient denies nausea, vomiting, diarrhea, or constipation. Genitourinary: The patient denies dysuria or increased frequency of urination. Neuromuscular: The patient denies seizures. The patient does complain of some weakness. PAST MEDICAL HISTORY: Significant for, 1. Sick sinus syndrome. 2. Cerebrovascular accident. 3. History of asthma. 4. Hypertension. PAST SURGICAL HISTORY: Significant for pacemaker implantation in 2004. CURRENT MEDICATIONS: 1. Albuterol metered-dose inhaler two puffs p.o. q.i.d. p.r.n. 2. Aspirin 81 mg one tablet p.o. daily. 3. Diltiazem 90 mg two tablets p.o. daily. 4. Lisinopril 5 mg one tablet p.o. daily. 5. Antivert 25 mg one tablet p.o. q.8 hours p.r.n. 6. Metoprolol 25 mg one tablet p.o. daily. 7. MiraLax 17 g p.o. daily. ALLERGIES: No known drug allergies. SOCIAL HISTORY: The patient is and lives alone. The patient denies tobacco use. The patient admits to occasional alcohol use. PHYSICAL EXAMINATION: VITAL SIGNS: Temperature 95.9 degrees, respirations 17, pulse 55 to 60, and blood pressure 153/78. GENERAL: The patient is a well-developed and well-nourished male, in no apparent distress. HEENT: Eyes, pupils are equal and responsive to light and accommodation. Extraocular movements are intact. NECK: Supple without lymphadenopathy. CHEST/LUNGS: Clear to auscultation bilaterally without wheezes or rales. CARDIOVASCULAR: Regular rhythm and rate. S1 and S2 are normal without murmurs, rubs, or gallops. ABDOMEN: Soft, nontender, and nondistended. Positive bowel sounds. No evidence of hepatosplenomegaly. Currently, no rebound or guarding noted. EXTREMITIES: Negative for clubbing, cyanosis, or edema. RECTAL AND GENITAL: Refused. NEUROLOGIC: Cranial nerves II through XII are grossly intact without focal deficits. Motor strength is 5/5 bilaterally. Deep tendon reflexes 2+ plantar. LABORATORY STUDIES: WBC 4.8, hemoglobin 12.6, hematocrit 36.7, and platelets 176,000. Sodium 143, potassium 4.7, chloride 103, CO2 27, BUN 18, creatinine 1.3, and glucose 90. Troponin less than 0.3. BNP elevated at 391. Urinalysis was within normal limits. CT scan of the brain was reported as no masses for his hemorrhage. A CT scan of the right hip was reported as no fracture. A chest x-ray is reported as no acute disease. An x-ray of the pelvis and right hip failed to demonstrate fracture. An EKG demonstrated sinus bradycardia at approximately 55 beats per minute. There is a right bundle-branch block. ASSESSMENT: This is a 76-year-old male. 1. Fall injury. 2. Costochondritis of the right ribs. 3. Generalized weakness. 4. Fall injury. 5. Sick sinus syndrome. 6. Hypertension. 7. History of cerebrovascular disease. TREATMENT: 1. Costochondritis. The patient is asking for [place]. The patient will be offered [place] p.r.n. for severe pain. A rib x-ray is pending. 2. Weakness. A Neurology consultation will be obtained with Dr. Zamora. Weakness may be secondary to cerebrovascular accident. 3. Fall injury. 4. Sick sinus syndrome. A Cardiology consultation will be obtained with Dr. Luke Sam. The patient is status post AICD placement. 5. Hypertension. Continue diltiazem as above. 6. Cerebrovascular disease. Diogenes Padilla M.D. DR: BARBARA JOB#: [id number] CC:
--- NOTE | 2016-11-01 22:14 | Pulmonology Progress Note ---
Assessment/Plan Problems: (1) ACS (acute coronary syndrome) (2) Dizziness (3) Multiple injuries due to trauma (4) Spinal stenosis (5) CVA (cerebral vascular accident) (6) Pacemaker Assessment/Plan echo, stress test pain control pt/ot f/u by kaden all notes and meds reviewed. Subjective ROS Limited/Unobtainable: No Interval Events: still episodes of back pain Allergies: Coded Allergies: No Known Allergies (Verified Allergy, Unknown, 07/04/09) Objective Last 24 Hour Vital Signs Date Time Temp Pulse Resp B/P Pulse Ox O2 Delivery O2 Flow Rate FiO2 11/01/16 20:00 97.9 62 20 146/78 98 Room Air 11/01/16 19:30 64 16 Room Air 21 11/01/16 16:00 98.1 61 20 149/85 97 Room Air 11/01/16 15:08 97.9 11/01/16 12:00 60 11/01/16 09:50 62 153/78 11/01/16 09:50 153/78 11/01/16 09:50 62 153/78 11/01/16 08:00 68 11/01/16 08:00 95.9 55 17 153/78 95 Room Air 60 11/01/16 07:40 68 18 Room Air 21 11/01/16 04:00 60 11/01/16 00:13 98.6 64 20 139/81 98 Room Air 11/01/16 00:00 60 Intake and Output 10/31/16 11/01/16 19:00 07:00 Output Total 600 ml Balance -600 ml Output Urine Total 600 ml Objective General Appearance: WD/WN HEENT: normocephalic, atraumatic Respiratory/Chest: chest wall non-tender, lungs clear Cardiovascular: normal peripheral pulses, normal rate Abdomen: normal bowel sounds, soft, non tender Extremities: no cyanosis, no clubbing Neurologic/Psychiatric: 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 grossly normal Laboratory Tests 11/01/16 07:47: White Blood Count 3.3L, Red Blood Count 4.17L, Hemoglobin 12.6L, Hematocrit 37.4L, Mean Corpuscular Volume 90, Mean Corpuscular Hemoglobin 30.1, Mean Corpuscular Hemoglobin Concent 33.6, Red Cell Distribution Width 12.0, Platelet Count 202, Mean Platelet Volume 7.3, Neutrophils (%) (Auto) , Lymphocytes (%) ( Auto) , Monocytes (%) (Auto) , Eosinophils (%) (Auto) , Basophils (%) (Auto) , Differential Total Cells Counted 100, Neutrophils % (Manual) 46, Lymphocytes % ( Manual) 38, Monocytes % (Manual) 13H, Eosinophils % (Manual) 2, Basophils % ( Manual) 1, Band Neutrophils 0, Platelet Estimate Adequate, Platelet Morphology Normal, Red Blood Cell Morphology Normal, Prothrombin Time 10.4, Prothromb Time International Ratio 1.0, Activated Partial Thromboplast Time 27, Sodium Level 144, Potassium Level 3.8, Chloride Level 103, Carbon Dioxide Level 27, Anion Gap 14, Blood Urea Nitrogen 22, Creatinine 1.5H, Estimat Glomerular Filtration Rate , Glucose Level 87, Calcium Level 8.9, Total Bilirubin 0.3, Aspartate Amino Transf (AST/SGOT) 22, Alanine Aminotransferase (ALT/SGPT) 13, Alkaline Phosphatase 59, Total Protein 6.1L, Albumin 3.4L, Globulin 2.7, Albumin/ Globulin Ratio 1.2, Triglycerides Level 70, Cholesterol Level 198, LDL Cholesterol 123H, HDL Cholesterol 61H, Cholesterol/HDL Ratio 3.2L, Thyroid Stimulating Hormone (TSH) 1.760 Current Medications Medications (Trade) Dose Ordered Sig/Gloria Route PRN Reason Start Time Stop Time Status Last Admin Dose Admin Acetaminophen (Tylenol) 650 mg Q4H PRN ORAL fever 10/31/16 18:45 11/30/16 18:44 11/01/16 18:58 Acetaminophen/ Hydrocodone Bitart ([place] 10/325) 1 ea Q4H PRN ORAL Severe Pain (Pain Scale 7-10) 11/01/16 15:15 11/08/16 15:14 Acetaminophen/ Hydrocodone Bitart ([place] 5/325) 1 tab Q4H PRN ORAL Moderate Pain (Pain Scale 4-6) 11/01/16 15:15 11/08/16 15:14 Al Hydroxide/Mg Hydroxide ([place] II) 30 ml Q6H PRN ORAL dyspepsia 10/31/16 18:45 11/30/16 18:44 Albuterol/ Ipratropium (DuoNeb 0.5-3(2.5)mg/3ml) 3 ml Q4H PRN HHN Shortness of Breath 10/31/16 18:45 3/11/17 18:44 Aspirin (Ecotrin) 81 mg DAILY ORAL 11/01/16 09:00 12/01/16 08:59 11/01/16 09:46 Clonidine HCl (Catapres) 0.1 mg Q4H PRN ORAL SBP >170 11/01/16 15:45 12/01/16 15:44 Dextrose (Dextrose 50%) STAT PRN IV Hypoglycemia 10/31/16 18:45 11/30/16 18:44 Heparin Sodium (Porcine) (Heparin 5000 units/ml) 5,000 units EVERY 12 HOURS SUBQ 10/31/16 21:00 11/30/16 20:59 11/01/16 21:04 Ibuprofen (Motrin) 600 mg Q6H PRN ORAL PAIN UNRELIEVED BY NORCO 11/01/16 15:28 12/01/16 14:44 Lisinopril (Zestril) 10 mg DAILY ORAL 11/01/16 09:00 12/01/16 08:59 11/01/16 09:50 Lorazepam (Ativan 2mg/ml 1ml) 0.5 mg Q4H PRN IV For Anxiety 10/31/16 18:45 11/07/16 18:44 Metoprolol Succinate (Toprol XL) 25 mg DAILY ORAL 11/01/16 09:00 12/01/16 08:59 11/01/16 09:50 Morphine Sulfate (Morphine Sulfate) 1 mg Q4H PRN IVP For Pain 7-10 11/01/16 15:30 11/07/16 18:44 Nitroglycerin (Ntg) 0.4 mg Q5M X 3 DOSES PRN SL Prn Chest Pain 10/31/16 18:45 11/30/16 18:44 Ondansetron HCl (Zofran) 4 mg Q6H PRN IVP Nausea & Vomiting 10/31/16 18:45 11/30/16 18:44 Polyethylene Glycol (Miralax) 17 gm HSPRN PRN ORAL Constipation 10/31/16 18:45 11/30/16 18:44 Temazepam (Restoril) 15 mg HSPRN PRN ORAL Insomnia 10/31/16 18:45 11/07/16 18:44 JAYDE ADAMS Nov 01, 2016 22:14
[2016-11-02 00:22] VITALS: BP 156/81
--- NOTE | 2016-11-02 02:18 | Consultation ---
DATE OF CONSULTATION: 11/01/2016 NEUROLOGICAL CONSULTATION CONSULTING PHYSICIAN: Aime Zamora M.D. REQUESTING PHYSICIAN: Jayant Mancera M.D. HISTORY OF PRESENT ILLNESS: This is a 76-year-old man seen in neurological consultation to evaluate a recurrent fall. The patient informed me that the last few months, he developed weakness in the proximal aspect of both lower extremities, predominantly in the left leg and lately he had been having a few episodes of fall. A week ago as he was coming out of the cot, he tripped and fell down on his back. He was helped by his daughter to get up. The same day he had not much of pain, but following day he woke up with significant pain in right rib cage, right flank region, and left groin area. The symptoms were not improving and the patient was sent into emergency room after he reported of having numbness in his right upper and right lower extremity. On admission, vital signs were stable. He was afebrile. His laboratory work included mild anemia, hemoglobin 12.6 and hematocrit 36.7. Normal coagulation panel. Normal urinalysis. Chemistry panel was normal with a slight elevated LDL. Normal TSH. 1.5 and albumin down to 3.4. Imaging studies included a CT scan of the lumbar spine revealed multilevel degenerative joint disease. X-ray of the pelvis, ribs with no fracture and no dislocation. CT scan of the hips, no acute bony trauma. CT scan of the brain revealed mild age-related changes. No evidence of acute intracranial abnormalities. No midline shift. No hemorrhage. Since admission to present, the patient remained with the persistent aches and pains and difficulty ambulation. PAST MEDICAL HISTORY: The patient indicated he started to develop numbness in his right upper extremity 6 to 7 months ago. This was accompanied by weakness in his right arm. He has pain in his upper back and neck for several years. Apparently, he has significant spinal stenosis and is scheduled to be seen for orthopedic surgeon for decompression surgery. He has a chronic low back pain, also bronchial asthma, sick sinus syndrome, pacemaker, benign prostatic hypertrophy, hypertension, prostate CA, and hyperlipidemia. abnormal gait for several months, using cane for ambulation. MEDICATIONS PRIOR TO ADMISSION: Included albuterol, aspirin, zolpidem, lisinopril, meclizine as needed, metoprolol, and MiraLAX. ALLERGIES: None reported. SOCIAL HISTORY: Denies alcohol or drug abuse. Nonsmoker. FAMILY HISTORY: Noncontributory. REVIEW OF SYMPTOMS: Denies headache, but has occasional dizziness with changing body position. No abnormality with vision, hearing. No changes in level of consciousness. He has persistent aches and pain in his upper back, neck, pain in his lower back region. He has weakness in both lower extremities, predominantly left lower extremity and both hip flexors. Weakness in right upper extremity and numbness in the right upper extremity. No chest pain or palpitation. He has a pacemaker in place. PHYSICAL EXAMINATION: GENERAL: This is a well-developed and well-nourished man, not in acute distress, lying comfortably in bed. HEENT: Head is normocephalic. No evidence of injuries. Eyes, ears, and throat are clear. NECK: Supple. No meningeal signs. MUSCULOSKELETAL: Palpable tenderness in the right rib cage, tenderness on palpation of left groin region, otherwise no deformities. Peripheral pulses 1+ symmetric. MENTAL STATUS: The patient is alert, oriented x3. Speech fluent, language intact. No aphasia. No apraxia. He is forgetful, but able to provide with a reasonable history. CRANIAL NERVE II: Pupils both responding to light and accommodation. Extraocular movement intact. No nystagmus. CRANIAL NERVE V: Normal corneal responses. CRANIAL NERVE VII: No facial asymmetry. CRANIAL NERVE VIII: Slight decrease in hearing. CRANIAL NERVES IX THROUGH XII: Within normal limits. MOTOR EXAMINATION: He has a normal muscle tone, but strength of 4/5 right upper extremity, 4-/5 left hip flexor, 4/5 right hip flexor, 4/5 left hamstring, 5/5 both feet dorsiflexion. Deep tendon reflexes depressed bilaterally. Plantar response is flexor. SENSORY EXAMINATION: Area of decreased pinprick sensation in right upper and left lower extremity. Gait not tested, but reportedly able to ambulate only with assistance using a cane. IMPRESSION: 1. Status post mechanical fall with blunt right right rib cage and left pelvic bone contusion. No evidence of stroke or transient ischemic attack noted. 2. History of cervical spondylosis with evidence of cervical myelopathy. 3. Lumbar spondylosis. 4. Hypertension. 5. Prostate carcinoma. 6. Chronic obstructive pulmonary disease. 7. Pacemaker in place. RECOMMENDATION: 1. The patient has posttraumatic, post contusion pain in right rib cage and left groin region. Rib cage x-ray on the right side will be obtained, but pelvic and hip x-rays revealed no fracture or dislocation. 2. As far as cervical myelopathy, this may need additional diagnostic studies. Obviously scheduled now by his orthopedic surgeon in preparation for surgical treatment. 3. Pain management to include nonsteroidal agents, muscle relaxant, and physical therapy. Tramadol for pain control. Thank you for allowing me to see this interesting patient in neurological consultation. Aime Zamora M.D. DR: EDMUNDO JOB#: [id number] CC:
[2016-11-02 04:26] VITALS: BP 154/95
[2016-11-02 07:22] LABS: MEAN CORPUSCULAR HEMOGLOBIN 30.3 PG (27.0-31.0); MEAN CORPUSCULAR HGB CONC 34.6 G/DL (32.0-36.0); MEAN CORPUSCULAR VOLUME 87 FL (80-99); MEAN PLATELET VOLUME 6.3 FL (6.5-10.1); PLATELET COUNT 193 K/UL (150-450); RED BLOOD COUNT 4.28 M/UL (4.70-6.10); RED CELL DISTRIBUTION WIDTH 11.8 % (11.6-14.8); WHITE BLOOD COUNT 3.1 K/UL (4.8-10.8)
[2016-11-02 07:29] LABS: ANION GAP 11 (5-15); CALCIUM 9.1 mg/dL (8.6-10.2); CARBON DIOXIDE 27 mEQ/L (20-30); CHLORIDE 105 mEQ/L (98-107); CREATININE 1.2 mg/dL (0.7-1.2); HEMOLYSIS 6; POTASSIUM 3.8 mEQ/L (3.4-4.9); SODIUM 143 mEQ/L (135-145)
[2016-11-02 07:31] LABS: TROPONIN I < 0.30 ng/mL (<=0.30)
[2016-11-02 08:00] VITALS: BP 160/89
[2016-11-02] MEDS: Lisinopril 10mg tab ORAL SCH (09:18)
[2016-11-02 09:27] LABS: EOSINOPHILS % (MANUAL) 4 % (0-3); LYMPHOCYTES % (MANUAL) 41 % (20-45); NEUTROPHILS % (MANUAL) 43 % (45-75); TOTAL CELLS COUNTED 100
[2016-11-02] MEDS: Aspirin EC 81mg tab ORAL SCH (09:27)
[2016-11-02 09:28] LABS: BAND NEUTROPHILS % (MANUAL) 0 % (0-8); BASOPHILS % (MANUAL) 0 % (0-2); PLATELET ESTIMATE ADEQUATE; PLATELET MORPHOLOGY NORMAL
[2016-11-02] MEDS: Heparin 5000 units/ml inj SUBQ SCH ×2 (09:28→21:16)
--- NOTE | 2016-11-02 09:39 | Diagnostic Imaging Report ---
APPROVED REPORT CPT Code: 46779 Vascular Symptoms CVA/TIA: CAROTID (BILATERAL) - Imaging reveals no significant plaque within the right and left extracranial carotid arteries. The Doppler spectral flow analysis is within normal limits throughout the extracranial carotid arteries bilaterally. VERTEBRAL- The vertebral arteries are within normal limits.
--- NOTE | 2016-11-02 10:22 | Internal Med Progress Note ---
Subjective Date of Service: Nov 02, 2016 Physician Name Fouzia Ramirez Attending Physician Jayant Mancera MD Current Medications Medications (Trade) Dose Ordered Sig/Gloria Route PRN Reason Start Time Stop Time Status Last Admin Dose Admin Acetaminophen (Tylenol) 650 mg Q4H PRN ORAL fever 10/31/16 18:45 11/30/16 18:44 11/02/16 01:36 Acetaminophen/ Hydrocodone Bitart ([place] 10/325) 1 ea Q4H PRN ORAL Severe Pain (Pain Scale 7-10) 11/01/16 15:15 11/08/16 15:14 Acetaminophen/ Hydrocodone Bitart ([place] 5/325) 1 tab Q4H PRN ORAL Moderate Pain (Pain Scale 4-6) 11/01/16 15:15 11/08/16 15:14 Al Hydroxide/Mg Hydroxide (Mylanta II) 30 ml Q6H PRN ORAL dyspepsia 10/31/16 18:45 11/30/16 18:44 Albuterol/ Ipratropium (DuoNeb 0.5-3(2.5)mg/3ml) 3 ml Q4H PRN HHN Shortness of Breath 10/31/16 18:45 11/05/16 18:44 Aspirin (Ecotrin) 81 mg DAILY ORAL 11/01/16 09:00 12/01/16 08:59 11/02/16 09:27 Clonidine HCl (Catapres) 0.1 mg Q4H PRN ORAL SBP >170 11/01/16 15:45 12/01/16 15:44 Dextrose (Dextrose 50%) STAT PRN IV Hypoglycemia 10/31/16 18:45 11/30/16 18:44 Heparin Sodium (Porcine) (Heparin 5000 units/ml) 5,000 units EVERY 12 HOURS SUBQ 10/31/16 21:00 11/30/16 20:59 11/02/16 09:28 Ibuprofen (Motrin) 600 mg Q6H PRN ORAL PAIN UNRELIEVED BY NORCO 11/01/16 15:28 12/01/16 14:44 Lisinopril (Zestril) 10 mg DAILY ORAL 11/01/16 09:00 12/01/16 08:59 11/02/16 09:18 Lorazepam (Ativan 2mg/ml 1ml) 0.5 mg Q4H PRN IV For Anxiety 10/31/16 18:45 11/07/16 18:44 Metoprolol Succinate (Toprol XL) 25 mg DAILY ORAL 11/01/16 09:00 12/01/16 08:59 11/01/16 09:50 Morphine Sulfate (Morphine Sulfate) 1 mg Q4H PRN IVP For Pain 7-10 11/01/16 15:30 11/07/16 18:44 Nitroglycerin (Ntg) 0.4 mg Q5M X 3 DOSES PRN SL Prn Chest Pain 10/31/16 18:45 11/30/16 18:44 Ondansetron HCl (Zofran) 4 mg Q6H PRN IVP Nausea & Vomiting 10/31/16 18:45 11/30/16 18:44 Polyethylene Glycol (Miralax) 17 gm HSPRN PRN ORAL Constipation 10/31/16 18:45 11/30/16 18:44 Temazepam (Restoril) 15 mg HSPRN PRN ORAL Insomnia 10/31/16 18:45 11/07/16 18:44 Allergies: Coded Allergies: No Known Allergies (Verified Allergy, Unknown, 07/04/09) ROS Limited/Unobtainable: No Constitutional: Reports: no symptoms HEENT: Reports: no symptoms Cardiovascular: Reports: no symptoms Respiratory: Reports: no symptoms Gastrointestinal/Abdominal: Reports: no symptoms Neurologic/Psychiatric: Reports: no symptoms Subjective 76 YO M admitted with fall injury. C/O Right rib and right hip pain. Cover for Int Maximo-Dr Mancera. Await nuclear cardiac stress test today. Objective Last Vital Signs Date Time Temp Pulse Resp B/P Pulse Ox O2 Delivery O2 Flow Rate FiO2 11/02/16 09:18 160/89 11/02/16 09:00 66 11/02/16 08:00 97.5 18 97 Room Air 11/01/16 19:30 21 General Appearance: WD/WN, no apparent distress, alert EENT: PERRL/EOMI, normal ENT inspection Neck: non-tender, normal alignment, supple Cardiovascular: normal peripheral pulses, normal rate, regular rhythm, no gallop/murmur Respiratory/Chest: chest wall non-tender, lungs clear, normal breath sounds, no respiratory distress, no accessory muscle use, other - right rib pain Abdomen: normal bowel sounds, non tender, soft, no organomegaly, no mass Neurologic: rackman II-XII grossly normal, no motor/sensory deficits Skin: normal pigmentation, warm/dry Laboratory Tests Test 11/02/16 07:06 White Blood Count 3.1 K/UL (4.8-10.8) L Red Blood Count 4.28 M/UL (4.70-6.10) L Hemoglobin 13.0 G/DL (14.2-18.0) L Hematocrit 37.4 % (42.0-52.0) L Mean Corpuscular Volume 87 FL (80-99) Mean Corpuscular Hemoglobin 30.3 PG (27.0-31.0) Mean Corpuscular Hemoglobin Concent 34.6 G/DL (32.0-36.0) Red Cell Distribution Width 11.8 % (11.6-14.8) Platelet Count 193 K/UL (150-450) Mean Platelet Volume 6.3 FL (6.5-10.1) L Neutrophils (%) (Auto) % (45.0-75.0) Lymphocytes (%) (Auto) % (20.0-45.0) Monocytes (%) (Auto) % (1.0-10.0) Eosinophils (%) (Auto) % (0.0-3.0) Basophils (%) (Auto) % (0.0-2.0) Differential Total Cells Counted 100 Neutrophils % (Manual) 43 % (45-75) L Lymphocytes % (Manual) 41 % (20-45) Monocytes % (Manual) 12 % (1-10) H Eosinophils % (Manual) 4 % (0-3) H Basophils % (Manual) 0 % (0-2) Band Neutrophils 0 % (0-8) Platelet Estimate Adequate Platelet Morphology Normal Red Blood Cell Morphology Normal Sodium Level 143 mEQ/L (135-145) Potassium Level 3.8 mEQ/L (3.4-4.9) Chloride Level 105 mEQ/L (98-107) Carbon Dioxide Level 27 mEQ/L (20-30) Anion Gap 11 (5-15) Blood Urea Nitrogen 19 mg/dL (7-23) Creatinine 1.2 mg/dL (0.7-1.2) Estimat Glomerular Filtration Rate mL/min (>60) Glucose Level 86 mg/dL (74-106) Calcium Level 9.1 mg/dL (8.6-10.2) Troponin I < 0.30 ng/mL (<=0.30) Pro-B-Type Natriuretic Peptide 296 pg/mL (0-450) Intake and Output 11/01/16 11/02/16 19:00 07:00 Intake Total 680 ml 480 ml Output Total 84 ml 900 ml Balance 596 ml -420 ml Intake Oral 680 ml 480 ml Output Urine Total 84 ml 900 ml # Voids 3 2 Assessment/Plan Problem List: (1) Generalized weakness (2) Sick sinus syndrome Assessment & Plan: See cardiology note. Await nuclear cardiac stress test today. (3) HTN (hypertension) Assessment & Plan: Continue metoprolol and clonidine (4) Cerebral vascular disease (5) Costochondral chest pain (6) Hip pain, right Assessment & Plan: CT and xrays neg for fracture. (7) s/p mechanical fall (8) Pacemaker (9) Vertigo Assessment & Plan: Neuro workup negative so far. See neruo note. Status: not improved Assessment/Plan Discharge planning: SNF vs home health FOUZIA RAMIREZ Nov 02, 2016 10:22
[2016-11-02 11:41] VITALS: BP 149/84
--- NOTE | 2016-11-02 15:12 | Pulmonology Progress Note ---
Assessment/Plan Problems: (1) ACS (acute coronary syndrome) (2) Dizziness (3) Multiple injuries due to trauma (4) Spinal stenosis (5) CVA (cerebral vascular accident) (6) Pacemaker Assessment/Plan echo, stress test done pain control pt/ot f/u by kaden d/ayaan Sam all notes and meds reviewed. Subjective ROS Limited/Unobtainable: No Interval Events: dobutmaine stress was done today Allergies: Coded Allergies: No Known Allergies (Verified Allergy, Unknown, 07/04/09) Objective Last 24 Hour Vital Signs Date Time Temp Pulse Resp B/P Pulse Ox O2 Delivery O2 Flow Rate FiO2 11/02/16 11:41 97.0 72 18 149/84 97 Room Air 11/02/16 09:18 160/89 11/02/16 09:00 66 160/89 11/02/16 08:00 97.5 61 18 160/89 97 Room Air 11/02/16 08:00 66 11/02/16 04:26 97.2 58 19 154/95 98 Room Air 11/02/16 04:00 65 11/02/16 00:22 98.8 63 20 156/81 98 Room Air 11/02/16 00:00 60 11/01/16 20:00 97.9 62 20 146/78 98 Room Air 11/01/16 20:00 62 11/01/16 19:30 64 16 Room Air 21 11/01/16 16:00 98.1 61 20 149/85 97 Room Air 11/01/16 16:00 61 Intake and Output 11/01/16 11/02/16 19:00 07:00 Intake Total 680 ml 480 ml Output Total 84 ml 900 ml Balance 596 ml -420 ml Intake Oral 680 ml 480 ml Output Urine Total 84 ml 900 ml # Voids 3 2 Objective General Appearance: WD/WN HEENT: normocephalic, atraumatic Respiratory/Chest: chest wall non-tender, lungs clear Cardiovascular: normal peripheral pulses, normal rate Abdomen: normal bowel sounds, soft, non tender Extremities: no cyanosis, no clubbing Neurologic/Psychiatric: press breaker II-XII grossly normal Laboratory Tests 11/02/16 07:06: White Blood Count 3.1L, Red Blood Count 4.28L, Hemoglobin 13.0L, Hematocrit 37.4L, Mean Corpuscular Volume 87, Mean Corpuscular Hemoglobin 30.3, Mean Corpuscular Hemoglobin Concent 34.6, Red Cell Distribution Width 11.8, Platelet Count 193, Mean Platelet Volume 6.3L, Neutrophils (%) (Auto) , Lymphocytes (%) ( Auto) , Monocytes (%) (Auto) , Eosinophils (%) (Auto) , Basophils (%) (Auto) , Differential Total Cells Counted 100, Neutrophils % (Manual) 43L, Lymphocytes % (Manual) 41, Monocytes % (Manual) 12H, Eosinophils % (Manual) 4H, Basophils % ( Manual) 0, Band Neutrophils 0, Platelet Estimate Adequate, Platelet Morphology Normal, Red Blood Cell Morphology Normal, Sodium Level 143, Potassium Level 3.8 , Chloride Level 105, Carbon Dioxide Level 27, Anion Gap 11, Blood Urea Nitrogen 19, Creatinine 1.2, Estimat Glomerular Filtration Rate , Glucose Level 86, Calcium Level 9.1, Troponin I < 0.30, Pro-B-Type Natriuretic Peptide 296 Current Medications Medications (Trade) Dose Ordered Sig/Gloria Route PRN Reason Start Time Stop Time Status Last Admin Dose Admin Acetaminophen (Tylenol) 650 mg Q4H PRN ORAL fever 10/31/16 18:45 11/30/16 18:44 11/02/16 12:38 Acetaminophen/ Hydrocodone Bitart ([place] 10/325) 1 ea Q4H PRN ORAL Severe Pain (Pain Scale 7-10) 11/01/16 15:15 11/08/16 15:14 Acetaminophen/ Hydrocodone Bitart ([place] 5/325) 1 tab Q4H PRN ORAL Moderate Pain (Pain Scale 4-6) 11/01/16 15:15 11/08/16 15:14 Al Hydroxide/Mg Hydroxide (Mylanta II) 30 ml Q6H PRN ORAL dyspepsia 10/31/16 18:45 11/30/16 18:44 Albuterol/ Ipratropium (DuoNeb 0.5-3(2.5)mg/3ml) 3 ml Q4H PRN HHN Shortness of Breath 10/31/16 18:45 11/05/16 18:44 Aspirin (Ecotrin) 81 mg DAILY ORAL 11/01/16 09:00 12/01/16 08:59 11/02/16 09:27 Clonidine HCl (Catapres) 0.1 mg Q4H PRN ORAL SBP >170 11/01/16 15:45 12/01/16 15:44 Dextrose (Dextrose 50%) STAT PRN IV Hypoglycemia 10/31/16 18:45 11/30/16 18:44 Heparin Sodium (Porcine) (Heparin 5000 units/ml) 5,000 units EVERY 12 HOURS SUBQ 10/31/16 21:00 11/30/16 20:59 11/02/16 09:28 Ibuprofen (Motrin) 600 mg Q6H PRN ORAL PAIN UNRELIEVED BY NORCO 11/01/16 15:28 12/01/16 14:44 Lisinopril (Zestril) 10 mg DAILY ORAL 11/01/16 09:00 12/01/16 08:59 11/02/16 09:18 Lorazepam (Ativan 2mg/ml 1ml) 0.5 mg Q4H PRN IV For Anxiety 10/31/16 18:45 11/07/16 18:44 Metoprolol Succinate (Toprol XL) 25 mg DAILY ORAL 11/01/16 09:00 12/01/16 08:59 11/01/16 09:50 Morphine Sulfate (Morphine Sulfate) 1 mg Q4H PRN IVP For Pain 7-10 11/01/16 15:30 11/07/16 18:44 Nitroglycerin (Ntg) 0.4 mg Q5M X 3 DOSES PRN SL Prn Chest Pain 10/31/16 18:45 11/30/16 18:44 Ondansetron HCl (Zofran) 4 mg Q6H PRN IVP Nausea & Vomiting 10/31/16 18:45 11/30/16 18:44 Polyethylene Glycol (Miralax) 17 gm HSPRN PRN ORAL Constipation 10/31/16 18:45 11/30/16 18:44 Temazepam (Restoril) 15 mg HSPRN PRN ORAL Insomnia 10/31/16 18:45 11/07/16 18:44 JAYDE ADAMS Nov 02, 2016 15:12
--- NOTE | 2016-11-02 15:15 | Cardiac Electrophysiology PN ---
Assessment/Plan Assessment/Plan 1. Chest pain. LAD 70%. Had Dobutamine Cardiolite today. Results pending. 2. S/P BS pacer with battery less than 6 months. Will reinterrogate the pacer. 3. HTN Continue Toprol and Lisinopril. Prn Clonidine 4. Hx of CVA DW RN Subjective Subjective Feeling better.No chest pain or SOB.Mostly V paced. Objective Last 24 Hour Vital Signs Date Time Temp Pulse Resp B/P Pulse Ox O2 Delivery O2 Flow Rate FiO2 11/02/16 11:41 97.0 72 18 149/84 97 Room Air 11/02/16 09:18 160/89 11/02/16 09:00 66 160/89 11/02/16 08:00 97.5 61 18 160/89 97 Room Air 11/02/16 08:00 66 11/02/16 04:26 97.2 58 19 154/95 98 Room Air 11/02/16 04:00 65 11/02/16 00:22 98.8 63 20 156/81 98 Room Air 11/02/16 00:00 60 11/01/16 20:00 97.9 62 20 146/78 98 Room Air 11/01/16 20:00 62 11/01/16 19:30 64 16 Room Air 21 11/01/16 16:00 98.1 61 20 149/85 97 Room Air 11/01/16 16:00 61 11/01/16 15:08 97.9 Intake and Output 11/01/16 11/02/16 19:00 07:00 Intake Total 680 ml 480 ml Output Total 84 ml 900 ml Balance 596 ml -420 ml Intake Oral 680 ml 480 ml Output Urine Total 84 ml 900 ml # Voids 3 2 Laboratory Tests Test 11/02/16 07:06 White Blood Count 3.1 K/UL (4.8-10.8) L Red Blood Count 4.28 M/UL (4.70-6.10) L Hemoglobin 13.0 G/DL (14.2-18.0) L Hematocrit 37.4 % (42.0-52.0) L Mean Corpuscular Volume 87 FL (80-99) Mean Corpuscular Hemoglobin 30.3 PG (27.0-31.0) Mean Corpuscular Hemoglobin Concent 34.6 G/DL (32.0-36.0) Red Cell Distribution Width 11.8 % (11.6-14.8) Platelet Count 193 K/UL (150-450) Mean Platelet Volume 6.3 FL (6.5-10.1) L Neutrophils (%) (Auto) % (45.0-75.0) Lymphocytes (%) (Auto) % (20.0-45.0) Monocytes (%) (Auto) % (1.0-10.0) Eosinophils (%) (Auto) % (0.0-3.0) Basophils (%) (Auto) % (0.0-2.0) Differential Total Cells Counted 100 Neutrophils % (Manual) 43 % (45-75) L Lymphocytes % (Manual) 41 % (20-45) Monocytes % (Manual) 12 % (1-10) H Eosinophils % (Manual) 4 % (0-3) H Basophils % (Manual) 0 % (0-2) Band Neutrophils 0 % (0-8) Platelet Estimate Adequate Platelet Morphology Normal Red Blood Cell Morphology Normal Sodium Level 143 mEQ/L (135-145) Potassium Level 3.8 mEQ/L (3.4-4.9) Chloride Level 105 mEQ/L (98-107) Carbon Dioxide Level 27 mEQ/L (20-30) Anion Gap 11 (5-15) Blood Urea Nitrogen 19 mg/dL (7-23) Creatinine 1.2 mg/dL (0.7-1.2) Estimat Glomerular Filtration Rate mL/min (>60) Glucose Level 86 mg/dL (74-106) Calcium Level 9.1 mg/dL (8.6-10.2) Troponin I < 0.30 ng/mL (<=0.30) Pro-B-Type Natriuretic Peptide 296 pg/mL (0-450) Objective Neck: No JVD Cardiovascular: normal rate, regular rhythm, no gallop/murmur. Pacer left subclavian intact Respiratory/Chest: lungs clear, normal breath sounds, no respiratory distress Abdomen: normal bowel sounds, non tender, soft, no organomegaly, no mass EXT: No edema FATOUMATA WALTON Nov 02, 2016 15:15
--- NOTE | 2016-11-02 15:16 | Cardiology Report ---
APPROVED REPORT EXAM: Two-dimensional and M-mode echocardiogram with Doppler and color Doppler. INDICATION Left ventricular function M-Mode DIMENSIONS Left Atrium (MM)3.1 (1.6-4.0cm) Aortic Cusp Exc.1.8 (1.5-2.0cm) Technically difficult study due to poor acoustic windows. M-mode measurements not obtainable due to cardiac position. Normal left ventricular chamber size, systolic function and wall motion. Left ventricular ejection fraction estimated to be 60-65 %. No evidence of left ventricular hypertrophy. No evidence of pericardial fat or effusion. Mild bi-atrial and right ventricular enlargement by 2D. Focal aortic valve sclerosis with adequate cusp excursion Thickened mitral valve leaflets with normal excursion. Mitral annulus and aortic root calcification. Pulmonic valve not well visualized. Normal tricuspid valve structure. IVC is normal in size with physiologic collapse. Probable pacemaker wire present in the right side chambers. A color flow and spectral Doppler study was performed and revealed: No aortic regurgitation. No mitral regurgitation. Left ventricular diastolic dysfunction grade 1. Moderate tricuspid regurgitation. Tricuspid systolic velocities suggests peak right ventricular systolic pressure of 32mmHg
--- NOTE | 2016-11-02 15:32 | Diagnostic Imaging Report ---
Indication: Trauma. Comparison: None Findings: 4 views of the right chest wall was obtained for evaluation of the ribs. There is an acute fracture of the right ninth rib. There is no pneumothorax. No pleural effusion seen. Endplate osteophytes noted throughout the thoracic spine. Impression: Acute fracture of the right ninth rib. No associated abnormalities
--- NOTE | 2016-11-02 15:58 | Consultation ---
DATE OF CONSULTATION: 11/01/2016 CARDIOLOGY CONSULTATION CONSULTING PHYSICIAN: Luke Sam M.D. REFERRING PHYSICIAN: Jayant Mancera M.D. REASON FOR CONSULTATION: Evaluation of the patient's fall as well as the patient's pacemaker. HISTORY OF PRESENT ILLNESS: The patient is a very pleasant 76-year-old gentleman under my Cardiology care with history of hypertension, history of [employer] pacemaker implantation in as well as history of gout, whom I saw in the office on 10/04/2016. The patient had cardiac catheterization on 02/26/2016 [facility] by me showed 70% proximal LAD stenosis. No intervention was performed. The patient presented to the emergency room at [facility] with multiple falls over the last few days and increased weakness. The patient complained of right hip pain. The patient, however, denies any loss of consciousness or head trauma. the patient's pacemaker and the battery has been less than six months since . REVIEW OF SYSTEMS: Review of systems was negative other than what was mentioned in the history of present illness. PAST MEDICAL HISTORY: 1. Hypertension. 2. Status post [employer] pacemaker. 3. Nonsustained ventricular tachycardia. 4. High PSA. 5. Asthma. 6. cataract surgery . FAMILY HISTORY: Noncontributory. SOCIAL HISTORY: Lives at home. Does not smoke or drink alcohol. PHYSICAL EXAMINATION: VITAL SIGNS: Blood pressure is 150/78, pulse is 62, respirations are 18, and is afebrile. HEAD AND NECK: Showed no JVD. CHEST: The pacemaker intact. LUNGS: Clear. CARDIOVASCULAR: Shows regular S1 and S2 with no gallop or murmur. ABDOMEN: Soft. EXTREMITIES: No pitting edema. LABORATORY DATA: His labs show a white count of , hemoglobin , hematocrit 37.5, and platelet count of 202,000. Sodium 144, potassium 3.8, BUN 22, creatinine 1.5, and glucose 87. INR is 1. Troponin is negative. CK is . ASSESSMENT AND PLAN: 1. Status post fall. The patient denies any loss of consciousness. The pacemaker was interrogated in the office and showed the battery is still less than six months ventricular paced. Echocardiogram was repeated, which showed ejection fraction within normal range. 2. Nonsustained ventricular tachycardia. Cardiac catheterization [facility] showed 67% partial stenosis did not have any chest pain. We will schedule the patient for nuclear stress test and this is consistent with ischemia and proceed with intervention of . 3. Hypertension. Continue lisinopril 10 mg daily and Toprol-XL 25 mg daily. I will discontinue Cardizem as that was not on the list of his medications at home. 4. pacemaker as mentioned above . Thank you very much, Dr. Mancera, for allowing me to participate in the care of this patient. Please do not hesitate to contact me for any questions regarding my evaluation. Luke Sam M.D. DR: ERICKA JOB#: [id number] CC:
--- NOTE | 2016-11-02 16:06 | Cardiology Report ---
APPROVED REPORT EKG Measurement Heart [id number] Atrial paced rhythm. Left axis deviation Right bundle branch block Abnormal ECG
[2016-11-02 16:44] VITALS: BP 139/95
[2016-11-03 00:25] VITALS: BP 154/87
[2016-11-03 04:20] VITALS: BP 156/91
[2016-11-03 08:26] LABS: MEAN CORPUSCULAR HEMOGLOBIN 30.3 PG (27.0-31.0); MEAN CORPUSCULAR VOLUME 89 FL (80-99); MEAN PLATELET VOLUME 6.7 FL (6.5-10.1); PLATELET COUNT 196 K/UL (150-450); RED BLOOD COUNT 4.17 M/UL (4.70-6.10); RED CELL DISTRIBUTION WIDTH 11.6 % (11.6-14.8); WHITE BLOOD COUNT 3.4 K/UL (4.8-10.8)
[2016-11-03 08:41] LABS: TROPONIN I < 0.30 ng/mL (<=0.30)
[2016-11-03 08:47] VITALS: BP 169/90
[2016-11-03 08:54] LABS: ANION GAP 15 (5-15); CALCIUM 8.9 mg/dL (8.6-10.2); CARBON DIOXIDE 26 mEQ/L (20-30); CHLORIDE 105 mEQ/L (98-107); CREATININE 1.3 mg/dL (0.7-1.2); HEMOLYSIS 5; POTASSIUM 3.7 mEQ/L (3.4-4.9); SODIUM 146 mEQ/L (135-145)
[2016-11-03] MEDS: Heparin 5000 units/ml inj SUBQ SCH ×2 (08:54→21:23)
[2016-11-03] MEDS: Lisinopril 10mg tab ORAL SCH (08:55)
[2016-11-03] MEDS: Aspirin EC 81mg tab ORAL SCH (08:55)
[2016-11-03] MEDS: Norco 10mg/325mg tab ORAL PRN (10:39)
[2016-11-03 10:52] LABS: BAND NEUTROPHILS % (MANUAL) 0 % (0-8); BASOPHILS % (MANUAL) 0 % (0-2); EOSINOPHILS % (MANUAL) 0 % (0-3); LYMPHOCYTES % (MANUAL) 28 % (20-45); NEUTROPHILS % (MANUAL) 60 % (45-75); PLATELET ESTIMATE ADEQUATE; PLATELET MORPHOLOGY NORMAL; TOTAL CELLS COUNTED 100
--- NOTE | 2016-11-03 11:00 | Diagnostic Imaging Report ---
Indications: Chest pain Technique: Single day single isotope protocol utilized. Initially, resting images obtained using IV administration 11.5 millicuries 99M technetium Myoview. Subsequently, patient underwent Dobutamine stress testing. See cardiology report for details. During dobutamine infusion, IV administration 30.4 mCi 99 M technetium Myoview. SPECT and planar images obtained. SPECT images gated to 8 phases of the cardiac cycle were also obtained, and reformatted into cine images for evaluation of ejection fraction. Comparison: None Findings: Cardiology report does not describe presence or absence of symptoms during dobutamine infusion. Per cardiology report, resting EKG demonstrates atrial paced rhythm with right bundle branch block. No significant ST T-wave changes were noted during infusion. Patient achieved a peak heart rate of 80 beats for minute, while short of the target heart rate of 122 beats for minute. Cardiology report describes that infusion was stopped due to marked elevation of blood pressure. Imaging demonstrates apparent decreased perfusion in the inferior wall which is somewhat ill-defined, appearing similar on the stress and resting images. No reversible perfusion defects are demonstrated. There is minimal dilatation of the left ventricle.. Calculated post stress ejection fraction greater than 70%. No definite focal wall motion abnormality Impression: Nonischemic clinical response to pharmacologic stress, per cardiology report Nondiagnostic electrocardiographic response to pharmacologic stress, per cardiology report Apparent decreased perfusion in the inferior wall, fixed. Suspect that this is most likely secondary to soft tissue attenuation artifact rather than a real perfusion defect, although infarct cannot completely ruled out. No evidence of ischemia at level of stress achieved Calculated post stress ejection fraction greater than 70%
[2016-11-03 12:09] VITALS: BP 138/77
[2016-11-03] MEDS ORDERED: DOBUTamine 250mg/250ml Premix IV ONE (12:47)
--- NOTE | 2016-11-03 15:51 | Cardiac Electrophysiology PN ---
Assessment/Plan Status Narrative Impression: Nonischemic clinical response to pharmacologic stress, per cardiology report Nondiagnostic electrocardiographic response to pharmacologic stress, per cardiology report Apparent decreased perfusion in the inferior wall, fixed. Suspect that this is most likely secondary to soft tissue attenuation artifact rather than a real perfusion defect, although infarct cannot completely ruled out. No evidence of ischemia at level of stress achieved Assessment/Plan 1. Chest pain. LAD 70%.Dobutamine Cardiolite showed no ischemia. 2. S/P BS pacer with battery less than 6 months. Reinterrogate the pacer.Still not reached the PHIL. 3. HTN Continue Toprol and Lisinopril and Prn Clonidine 4. Hx of CVA DW RN Subjective Subjective Feeling better.No chest pain or SOB. Awaiting stress test report. Objective Last 24 Hour Vital Signs Date Time Temp Pulse Resp B/P Pulse Ox O2 Delivery O2 Flow Rate FiO2 11/03/16 12:09 97.5 62 18 138/77 97 Room Air 11/03/16 08:55 60 169/90 11/03/16 08:55 169/90 11/03/16 08:47 97.5 60 18 169/90 97 Room Air 11/03/16 08:09 85 18 Room Air 11/03/16 08:00 60 11/03/16 04:20 98.8 71 21 156/91 97 Room Air 11/03/16 04:00 66 11/03/16 00:25 98.1 61 20 154/87 98 Room Air 11/03/16 00:00 58 11/03/16 00:00 64 11/02/16 22:14 97.0 11/02/16 20:00 74 11/02/16 19:30 66 18 Room Air 11/02/16 16:44 97.0 70 20 139/95 98 Room Air 11/02/16 16:00 65 Intake and Output 11/02/16 11/03/16 19:00 07:00 Intake Total 120 ml 320 ml Output Total 550 ml 800 ml Balance -430 ml -480 ml Intake Oral 120 ml 320 ml Output Urine Total 550 ml 800 ml # Voids 2 2 Laboratory Tests Test 11/03/16 07:15 White Blood Count 3.4 K/UL (4.8-10.8) L Red Blood Count 4.17 M/UL (4.70-6.10) L Hemoglobin 12.6 G/DL (14.2-18.0) L Hematocrit 37.1 % (42.0-52.0) L Mean Corpuscular Volume 89 FL (80-99) Mean Corpuscular Hemoglobin 30.3 PG (27.0-31.0) Mean Corpuscular Hemoglobin Concent 34.0 G/DL (32.0-36.0) Red Cell Distribution Width 11.6 % (11.6-14.8) Platelet Count 196 K/UL (150-450) Mean Platelet Volume 6.7 FL (6.5-10.1) Neutrophils (%) (Auto) % (45.0-75.0) Lymphocytes (%) (Auto) % (20.0-45.0) Monocytes (%) (Auto) % (1.0-10.0) Eosinophils (%) (Auto) % (0.0-3.0) Basophils (%) (Auto) % (0.0-2.0) Differential Total Cells Counted 100 Neutrophils % (Manual) 60 % (45-75) Lymphocytes % (Manual) 28 % (20-45) Monocytes % (Manual) 12 % (1-10) H Eosinophils % (Manual) 0 % (0-3) Basophils % (Manual) 0 % (0-2) Band Neutrophils 0 % (0-8) Platelet Estimate Adequate Platelet Morphology Normal Red Blood Cell Morphology Normal Sodium Level 146 mEQ/L (135-145) H Potassium Level 3.7 mEQ/L (3.4-4.9) Chloride Level 105 mEQ/L (98-107) Carbon Dioxide Level 26 mEQ/L (20-30) Anion Gap 15 (5-15) Blood Urea Nitrogen 22 mg/dL (7-23) Creatinine 1.3 mg/dL (0.7-1.2) H Estimat Glomerular Filtration Rate mL/min (>60) Glucose Level 89 mg/dL (74-106) Calcium Level 8.9 mg/dL (8.6-10.2) Troponin I < 0.30 ng/mL (<=0.30) Objective Neck: No JVD Cardiovascular: normal rate, regular rhythm, no gallop/murmur. Pacer left subclavian intact Respiratory/Chest: lungs clear, normal breath sounds, no respiratory distress Abdomen: normal bowel sounds, non tender, soft, no organomegaly, no mass EXT: No edema FATOUMATA WALTON Nov 03, 2016 15:50
[2016-11-03 16:00] VITALS: BP 156/95
--- NOTE | 2016-11-03 16:21 | Internal Med Progress Note ---
Subjective Date of Service: Nov 03, 2016 Physician Name ValerieFouzia Attending Physician Jayant Mancera MD Current Medications Medications (Trade) Dose Ordered Sig/Gloria Route PRN Reason Start Time Stop Time Status Last Admin Dose Admin Acetaminophen (Tylenol) 650 mg Q4H PRN ORAL Fever/Headache/Mild Pain 11/03/16 10:45 12/03/16 10:44 Acetaminophen/ Hydrocodone Bitart ([place] 10/325) 1 ea Q4H PRN ORAL Severe Pain (Pain Scale 7-10) 11/01/16 15:15 11/08/16 15:14 11/03/16 10:39 Acetaminophen/ Hydrocodone Bitart ([place] 5/325) 1 tab Q4H PRN ORAL Moderate Pain (Pain Scale 4-6) 11/01/16 15:15 11/08/16 15:14 Al Hydroxide/Mg Hydroxide (Mylanta II) 30 ml Q6H PRN ORAL dyspepsia 10/31/16 18:45 11/30/16 18:44 Albuterol/ Ipratropium (DuoNeb 0.5-3(2.5)mg/3ml) 3 ml Q4H PRN HHN Shortness of Breath 10/31/16 18:45 11/05/16 18:44 Aspirin (Ecotrin) 81 mg DAILY ORAL 11/01/16 09:00 12/01/16 08:59 11/03/16 08:55 Clonidine HCl (Catapres) 0.1 mg Q4H PRN ORAL SBP >170 11/01/16 15:45 12/01/16 15:44 Dextrose (Dextrose 50%) STAT PRN IV Hypoglycemia 10/31/16 18:45 11/30/16 18:44 Heparin Sodium (Porcine) (Heparin 5000 units/ml) 5,000 units EVERY 12 HOURS SUBQ 10/31/16 21:00 11/30/16 20:59 11/03/16 08:54 Ibuprofen (Motrin) 600 mg Q6H PRN ORAL PAIN UNRELIEVED BY NORCO 11/01/16 15:28 12/01/16 14:44 Lisinopril (Zestril) 10 mg DAILY ORAL 11/01/16 09:00 12/01/16 08:59 11/03/16 08:55 Lorazepam (Ativan 2mg/ml 1ml) 0.5 mg Q4H PRN IV For Anxiety 10/31/16 18:45 11/07/16 18:44 Metoprolol Succinate (Toprol XL) 25 mg DAILY ORAL 11/01/16 09:00 12/01/16 08:59 11/03/16 08:55 Morphine Sulfate (Morphine Sulfate) 1 mg Q4H PRN IVP For Pain 7-10 11/01/16 15:30 11/07/16 18:44 Nitroglycerin (Ntg) 0.4 mg Q5M X 3 DOSES PRN SL Prn Chest Pain 10/31/16 18:45 11/30/16 18:44 Ondansetron HCl (Zofran) 4 mg Q6H PRN IVP Nausea & Vomiting 10/31/16 18:45 11/30/16 18:44 Polyethylene Glycol (Miralax) 17 gm HSPRN PRN ORAL Constipation 10/31/16 18:45 11/30/16 18:44 Temazepam (Restoril) 15 mg HSPRN PRN ORAL Insomnia 10/31/16 18:45 11/07/16 18:44 Allergies: Coded Allergies: No Known Allergies (Verified Allergy, Unknown, 07/04/09) ROS Limited/Unobtainable: No Constitutional: Reports: no symptoms HEENT: Reports: no symptoms Cardiovascular: Reports: no symptoms Respiratory: Reports: no symptoms Gastrointestinal/Abdominal: Reports: no symptoms Genitourinary: Reports: no symptoms Neurologic/Psychiatric: Reports: no symptoms Subjective 76 YO M admitted with fall injury. Cover for [facility] Mancera. Objective Last Vital Signs Date Time Temp Pulse Resp B/P Pulse Ox O2 Delivery O2 Flow Rate FiO2 11/03/16 12:09 97.5 62 18 138/77 97 Room Air 11/01/16 19:30 21 Laboratory Tests Test 11/03/16 07:15 White Blood Count 3.4 K/UL (4.8-10.8) L Red Blood Count 4.17 M/UL (4.70-6.10) L Hemoglobin 12.6 G/DL (14.2-18.0) L Hematocrit 37.1 % (42.0-52.0) L Mean Corpuscular Volume 89 FL (80-99) Mean Corpuscular Hemoglobin 30.3 PG (27.0-31.0) Mean Corpuscular Hemoglobin Concent 34.0 G/DL (32.0-36.0) Red Cell Distribution Width 11.6 % (11.6-14.8) Platelet Count 196 K/UL (150-450) Mean Platelet Volume 6.7 FL (6.5-10.1) Neutrophils (%) (Auto) % (45.0-75.0) Lymphocytes (%) (Auto) % (20.0-45.0) Monocytes (%) (Auto) % (1.0-10.0) Eosinophils (%) (Auto) % (0.0-3.0) Basophils (%) (Auto) % (0.0-2.0) Differential Total Cells Counted 100 Neutrophils % (Manual) 60 % (45-75) Lymphocytes % (Manual) 28 % (20-45) Monocytes % (Manual) 12 % (1-10) H Eosinophils % (Manual) 0 % (0-3) Basophils % (Manual) 0 % (0-2) Band Neutrophils 0 % (0-8) Platelet Estimate Adequate Platelet Morphology Normal Red Blood Cell Morphology Normal Sodium Level 146 mEQ/L (135-145) H Potassium Level 3.7 mEQ/L (3.4-4.9) Chloride Level 105 mEQ/L (98-107) Carbon Dioxide Level 26 mEQ/L (20-30) Anion Gap 15 (5-15) Blood Urea Nitrogen 22 mg/dL (7-23) Creatinine 1.3 mg/dL (0.7-1.2) H Estimat Glomerular Filtration Rate mL/min (>60) Glucose Level 89 mg/dL (74-106) Calcium Level 8.9 mg/dL (8.6-10.2) Troponin I < 0.30 ng/mL (<=0.30) Intake and Output 11/02/16 11/03/16 19:00 07:00 Intake Total 120 ml 320 ml Output Total 550 ml 800 ml Balance -430 ml -480 ml Intake Oral 120 ml 320 ml Output Urine Total 550 ml 800 ml # Voids 2 2 Objective General Appearance: WD/WN, no apparent distress, alert EENT: PERRL/EOMI, normal ENT inspection Neck: non-tender, normal alignment, supple Cardiovascular: normal peripheral pulses, normal rate, regular rhythm, no gallop/murmur Respiratory/Chest: chest wall non-tender, lungs clear, normal breath sounds, no respiratory distress, no accessory muscle use, other - right rib pain Abdomen: normal bowel sounds, non tender, soft, no organomegaly, no mass 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 Nuclear cardiac stress test normal (3) HTN (hypertension) Assessment & Plan: Continue metoprolol and clonidine (4) Cerebral vascular disease (5) Costochondral chest pain (6) Hip pain, right Assessment & Plan: CT and xrays neg for fracture. (7) s/p mechanical fall (8) Pacemaker (9) Vertigo Assessment & Plan: Neuro workup negative so far. See neruo note. (10) Rib fracture Assessment & Plan: 9th right rib. Status: progressing Assessment/Plan Discharge planning: SNF vs home health FOUZIA RAMIREZ Nov 03, 2016 16:21
[2016-11-03 20:00] VITALS: BP 145/88
--- NOTE | 2016-11-03 22:16 | Pulmonology Progress Note ---
Assessment/Plan Problems: (1) ACS (acute coronary syndrome) (2) Dizziness (3) Multiple injuries due to trauma (4) Spinal stenosis (5) CVA (cerebral vascular accident) (6) Pacemaker Assessment/Plan echo reviewed stress test done, non-ischemic response pain control pt/ot f/u by kaden all notes and meds reviewed. dc planning Subjective Interval Events: no new complains Allergies: Coded Allergies: No Known Allergies (Verified Allergy, Unknown, 07/04/09) Objective Last 24 Hour Vital Signs Date Time Temp Pulse Resp B/P Pulse Ox O2 Delivery O2 Flow Rate FiO2 11/03/16 20:02 78 18 Room Air 11/03/16 20:00 97.5 66 22 145/88 97 Room Air 11/03/16 16:32 60 11/03/16 16:00 98.2 61 21 156/95 98 Room Air 11/03/16 12:09 97.5 62 18 138/77 97 Room Air 11/03/16 08:55 60 169/90 11/03/16 08:55 169/90 11/03/16 08:47 97.5 60 18 169/90 97 Room Air 11/03/16 08:09 85 18 Room Air 11/03/16 08:00 60 11/03/16 04:20 98.8 71 21 156/91 97 Room Air 11/03/16 04:00 66 11/03/16 00:25 98.1 61 20 154/87 98 Room Air 11/03/16 00:00 58 11/03/16 00:00 64 Intake and Output 11/02/16 11/03/16 19:00 07:00 Intake Total 120 ml 320 ml Output Total 550 ml 800 ml Balance -430 ml -480 ml Intake Oral 120 ml 320 ml Output Urine Total 550 ml 800 ml # Voids 2 2 Objective General Appearance: WD/WN HEENT: normocephalic, atraumatic Respiratory/Chest: chest wall non-tender, lungs clear Cardiovascular: normal peripheral pulses, normal rate Abdomen: normal bowel sounds, soft, non tender Extremities: no cyanosis, no clubbing 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 Laboratory Tests 11/03/16 07:15: White Blood Count 3.4L, Red Blood Count 4.17L, Hemoglobin 12.6L, Hematocrit 37.1L, Mean Corpuscular Volume 89, Mean Corpuscular Hemoglobin 30.3, Mean Corpuscular Hemoglobin Concent 34.0, Red Cell Distribution Width 11.6, Platelet Count 196, Mean Platelet Volume 6.7, Neutrophils (%) (Auto) , Lymphocytes (%) ( Auto) , Monocytes (%) (Auto) , Eosinophils (%) (Auto) , Basophils (%) (Auto) , Differential Total Cells Counted 100, Neutrophils % (Manual) 60, Lymphocytes % ( Manual) 28, Monocytes % (Manual) 12H, Eosinophils % (Manual) 0, Basophils % ( Manual) 0, Band Neutrophils 0, Platelet Estimate Adequate, Platelet Morphology Normal, Red Blood Cell Morphology Normal, Sodium Level 146H, Potassium Level 3.7 , Chloride Level 105, Carbon Dioxide Level 26, Anion Gap 15, Blood Urea Nitrogen 22, Creatinine 1.3H, Estimat Glomerular Filtration Rate , Glucose Level 89, Calcium Level 8.9, Troponin I < 0.30 Current Medications Medications (Trade) Dose Ordered Sig/Gloria Route PRN Reason Start Time Stop Time Status Last Admin Dose Admin Acetaminophen (Tylenol) 650 mg Q4H PRN ORAL Fever/Headache/Mild Pain 11/03/16 10:45 12/03/16 10:44 Acetaminophen/ Hydrocodone Bitart ([place] 10/325) 1 ea Q4H PRN ORAL Severe Pain (Pain Scale 7-10) 11/01/16 15:15 11/08/16 15:14 11/03/16 10:39 Acetaminophen/ Hydrocodone Bitart ([place] 5/325) 1 tab Q4H PRN ORAL Moderate Pain (Pain Scale 4-6) 11/01/16 15:15 11/08/16 15:14 Al Hydroxide/Mg Hydroxide (Mylanta II) 30 ml Q6H PRN ORAL dyspepsia 10/31/16 18:45 11/30/16 18:44 Albuterol/ Ipratropium (DuoNeb 0.5-3(2.5)mg/3ml) 3 ml Q4H PRN HHN Shortness of Breath 10/31/16 18:45 11/05/16 18:44 Aspirin (Ecotrin) 81 mg DAILY ORAL 11/01/16 09:00 12/01/16 08:59 11/03/16 08:55 Clonidine HCl (Catapres) 0.1 mg Q4H PRN ORAL SBP >170 3/7/17 15:45 12/01/16 15:44 Dextrose (Dextrose 50%) STAT PRN IV Hypoglycemia 10/31/16 18:45 11/30/16 18:44 Heparin Sodium (Porcine) (Heparin 5000 units/ml) 5,000 units EVERY 12 HOURS SUBQ 10/31/16 21:00 11/30/16 20:59 11/03/16 21:23 Ibuprofen (Motrin) 600 mg Q6H PRN ORAL PAIN UNRELIEVED BY NORCO 11/01/16 15:28 12/01/16 14:44 Lisinopril (Zestril) 10 mg DAILY ORAL 11/01/16 09:00 12/01/16 08:59 11/03/16 08:55 Lorazepam (Ativan 2mg/ml 1ml) 0.5 mg Q4H PRN IV For Anxiety 10/31/16 18:45 11/07/16 18:44 Metoprolol Succinate (Toprol XL) 25 mg DAILY ORAL 11/01/16 09:00 12/01/16 08:59 11/03/16 08:55 Morphine Sulfate (Morphine Sulfate) 1 mg Q4H PRN IVP For Pain 7-10 11/01/16 15:30 11/07/16 18:44 Nitroglycerin (Ntg) 0.4 mg Q5M X 3 DOSES PRN SL Prn Chest Pain 10/31/16 18:45 11/30/16 18:44 Ondansetron HCl (Zofran) 4 mg Q6H PRN IVP Nausea & Vomiting 10/31/16 18:45 11/30/16 18:44 Polyethylene Glycol (Miralax) 17 gm HSPRN PRN ORAL Constipation 10/31/16 18:45 11/30/16 18:44 Temazepam (Restoril) 15 mg HSPRN PRN ORAL Insomnia 10/31/16 18:45 11/07/16 18:44 JAYDE ADAMS Nov 03, 2016 22:16
[2016-11-04] VITALS (7 sets, daily range): BP systolic 118–170; BP diastolic 71–100
[2016-11-04] MEDS: Norco 10mg/325mg tab ORAL PRN ×3 (04:46→20:28)
[2016-11-04 07:10] LABS: BASOPHILS % (AUTO) 1.7 % (0.0-2.0); EOSINOPHILS % (AUTO) 2.5 % (0.0-3.0); LYMPHOCYTES % (AUTO) 26.8 % (20.0-45.0); MEAN CORPUSCULAR HEMOGLOBIN 30.8 PG (27.0-31.0); MEAN CORPUSCULAR HGB CONC 34.1 G/DL (32.0-36.0); MEAN CORPUSCULAR VOLUME 90 FL (80-99); MONOCYTES % (AUTO) 12.3 % (1.0-10.0); NEUTROPHILS % (AUTO) 56.6 % (45.0-75.0); PLATELET COUNT 200 K/UL (150-450); RED BLOOD COUNT 3.99 M/UL (4.70-6.10); WHITE BLOOD COUNT 3.6 K/UL (4.8-10.8)
[2016-11-04 07:22] LABS: ANION GAP 12 (5-15); CALCIUM 8.6 mg/dL (8.6-10.2); CARBON DIOXIDE 25 mEQ/L (20-30); CHLORIDE 108 mEQ/L (98-107); CREATININE 1.5 mg/dL (0.7-1.2); HEMOLYSIS 3; SODIUM 145 mEQ/L (135-145)
[2016-11-04] MEDS: Aspirin EC 81mg tab ORAL SCH (08:46)
[2016-11-04] MEDS: Lisinopril 10mg tab ORAL SCH (08:46)
[2016-11-04] MEDS: Heparin 5000 units/ml inj SUBQ SCH ×2 (08:48→20:29)
--- NOTE | 2016-11-04 14:43 | Cardiac Electrophysiology PN ---
Assessment/Plan Status Narrative Impression: Nonischemic clinical response to pharmacologic stress, per cardiology report Nondiagnostic electrocardiographic response to pharmacologic stress, per cardiology report Apparent decreased perfusion in the inferior wall, fixed. Suspect that this is most likely secondary to soft tissue attenuation artifact rather than a real perfusion defect, although infarct cannot completely ruled out. No evidence of ischemia at level of stress achieved Assessment/Plan 1. Chest pain.Hx of LAD 70%.Dobutamine Cardiolite stress test showed no ischemia. 2. S/P BS pacer with battery less than 6 months. Reinterrogated the pacer.Still not reached the PHIL. 3. HTN Continue Toprol, Lisinopril and Prn Clonidine 4. Hx of CVA DW RN Subjective Subjective Awaiting DC to SNF.No chest pain or SOB. Stress test nonischemic Objective Last 24 Hour Vital Signs Date Time Temp Pulse Resp B/P Pulse Ox O2 Delivery O2 Flow Rate FiO2 11/04/16 12:00 90 11/04/16 11:47 97.9 70 20 131/90 98 Room Air 11/04/16 08:46 62 148/87 11/04/16 08:46 148/87 11/04/16 08:25 98.2 62 20 148/87 100 Room Air 11/04/16 08:00 64 11/04/16 07:40 51 20 Room Air 11/04/16 04:00 63 11/04/16 03:59 97.8 67 18 118/71 97 Room Air 11/04/16 00:00 98.1 69 18 121/75 97 Room Air 11/04/16 00:00 67 11/03/16 20:02 78 18 Room Air 11/03/16 20:00 97.5 66 22 145/88 97 Room Air 11/03/16 20:00 60 11/03/16 16:32 60 11/03/16 16:00 98.2 61 21 156/95 98 Room Air Intake and Output 11/03/16 11/04/16 19:00 07:00 Intake Total 240 ml 360 ml Balance 240 ml 360 ml Intake Oral 240 ml 360 ml # Voids 2 2 Laboratory Tests Test 11/04/16 05:45 White Blood Count 3.6 K/UL (4.8-10.8) L Red Blood Count 3.99 M/UL (4.70-6.10) L Hemoglobin 12.3 G/DL (14.2-18.0) L Hematocrit 36.0 % (42.0-52.0) L Mean Corpuscular Volume 90 FL (80-99) Mean Corpuscular Hemoglobin 30.8 PG (27.0-31.0) Mean Corpuscular Hemoglobin Concent 34.1 G/DL (32.0-36.0) Red Cell Distribution Width 12.0 % (11.6-14.8) Platelet Count 200 K/UL (150-450) Mean Platelet Volume 7.0 FL (6.5-10.1) Neutrophils (%) (Auto) 56.6 % (45.0-75.0) Lymphocytes (%) (Auto) 26.8 % (20.0-45.0) Monocytes (%) (Auto) 12.3 % (1.0-10.0) H Eosinophils (%) (Auto) 2.5 % (0.0-3.0) Basophils (%) (Auto) 1.7 % (0.0-2.0) Sodium Level 145 mEQ/L (135-145) Potassium Level 4.0 mEQ/L (3.4-4.9) Chloride Level 108 mEQ/L (98-107) H Carbon Dioxide Level 25 mEQ/L (20-30) Anion Gap 12 (5-15) Blood Urea Nitrogen 26 mg/dL (7-23) H Creatinine 1.5 mg/dL (0.7-1.2) H Estimat Glomerular Filtration Rate mL/min (>60) Glucose Level 86 mg/dL (74-106) Calcium Level 8.6 mg/dL (8.6-10.2) Current Medications Medications (Trade) Dose Ordered Sig/Gloria Route PRN Reason Start Time Stop Time Status Last Admin Dose Admin Acetaminophen (Tylenol) 650 mg Q4H PRN ORAL Fever/Headache/Mild Pain 11/03/16 10:45 12/03/16 10:44 Acetaminophen/ Hydrocodone Bitart ([place] 10/325) 1 ea Q4H PRN ORAL Severe Pain (Pain Scale 7-10) 11/01/16 15:15 11/08/16 15:14 11/04/16 13:45 Acetaminophen/ Hydrocodone Bitart ([place] 5/325) 1 tab Q4H PRN ORAL Moderate Pain (Pain Scale 4-6) 11/01/16 15:15 11/08/16 15:14 Al Hydroxide/Mg Hydroxide (Mylanta II) 30 ml Q6H PRN ORAL dyspepsia 10/31/16 18:45 11/30/16 18:44 Albuterol/ Ipratropium (DuoNeb 0.5-3(2.5)mg/3ml) 3 ml Q4H PRN HHN Shortness of Breath 10/31/16 18:45 11/05/16 18:44 Aspirin (Ecotrin) 81 mg DAILY ORAL 11/01/16 09:00 12/01/16 08:59 11/04/16 08:46 Clonidine HCl (Catapres) 0.1 mg Q4H PRN ORAL SBP >170 11/01/16 15:45 12/01/16 15:44 Dextrose (Dextrose 50%) STAT PRN IV Hypoglycemia 10/31/16 18:45 11/30/16 18:44 Heparin Sodium (Porcine) (Heparin 5000 units/ml) 5,000 units EVERY 12 HOURS SUBQ 10/31/16 21:00 11/30/16 20:59 11/04/16 08:48 Ibuprofen (Motrin) 600 mg Q6H PRN ORAL PAIN UNRELIEVED BY NORCO 11/01/16 15:28 12/01/16 14:44 Lisinopril (Zestril) 10 mg DAILY ORAL 11/01/16 09:00 12/01/16 08:59 11/04/16 08:46 Lorazepam (Ativan 2mg/ml 1ml) 0.5 mg Q4H PRN IV For Anxiety 10/31/16 18:45 11/07/16 18:44 Metoprolol Succinate (Toprol XL) 25 mg DAILY ORAL 11/01/16 09:00 12/01/16 08:59 11/04/16 08:46 Morphine Sulfate (Morphine Sulfate) 1 mg Q4H PRN IVP For Pain 7-11/01/16 15:30 11/07/16 18:44 Nitroglycerin (Ntg) 0.4 mg Q5M X 3 DOSES PRN SL Prn Chest Pain 10/31/16 18:45 11/30/16 18:44 Ondansetron HCl (Zofran) 4 mg Q6H PRN IVP Nausea & Vomiting 10/31/16 18:45 11/30/16 18:44 Polyethylene Glycol (Miralax) 17 gm HSPRN PRN ORAL Constipation 10/31/16 18:45 11/30/16 18:44 Temazepam (Restoril) 15 mg HSPRN PRN ORAL Insomnia 10/31/16 18:45 11/07/16 18:44 Objective Neck: No JVD Cardiovascular: normal rate, regular rhythm, no gallop/murmur. Pacer left subclavian intact Respiratory/Chest: lungs clear, normal breath sounds, no respiratory distress Abdomen: normal bowel sounds, non tender, soft, no organomegaly, no mass EXT: No edema FATOUMATA WALTON Nov 04, 2016 14:43
[2016-11-04] MEDS ORDERED: ACETAMINOPHEN325 M1 ORAL (17:41)
[2016-11-04] MEDS ORDERED: NORCO 5-325 TA1 EACH ORAL (17:41)
--- NOTE | 2016-11-04 17:43 | Discharge Summary ---
Discharge Summary Hospital Course Date of Admission Oct 31, 2016 at 16:22 Date of Discharge Admitting Diagnosis CVA HPI Rah Rodriguez is a 76 year old male who was admitted on Oct 31, 2016 at 16: 22 for Cerebrovascular Accident Hospital Course The patient was seen and examined at bedside and all new and available data was reviewed in the patients chart. Last 24 Hour Vital Signs Date Time Temp Pulse Resp B/P Pulse Ox O2 Delivery O2 Flow Rate FiO2 11/04/16 16:00 98.2 66 18 118/71 97 Room Air 11/04/16 12:00 90 11/04/16 11:47 97.9 70 20 131/90 98 Room Air 11/04/16 08:46 62 148/87 11/04/16 08:46 148/87 11/04/16 08:25 98.2 62 20 148/87 100 Room Air 11/04/16 08:00 64 11/04/16 07:40 51 20 Room Air 11/04/16 04:00 63 11/04/16 03:59 97.8 67 18 118/71 97 Room Air 11/04/16 00:00 98.1 69 18 121/75 97 Room Air 11/04/16 00:00 67 11/03/16 20:02 78 18 Room Air 11/03/16 20:00 97.5 66 22 145/88 97 Room Air 11/03/16 20:00 60 GENERAL: The patient is a well-developed and well-nourished male, in no apparent distress. HEENT: Eyes, pupils are equal and responsive to light and accommodation. Extraocular movements are intact. NECK: Supple without lymphadenopathy. CHEST/LUNGS: Clear to auscultation bilaterally without wheezes or rales. CARDIOVASCULAR: Regular rhythm and rate. S1 and S2 are normal without murmurs. ABDOMEN: Soft, nontender, and nondistended. Positive bowel sounds. EXTREMITIES: Negative for clubbing, cyanosis, or edema. RECTAL AND GENITAL: Refused. NEUROLOGIC: Cranial nerves II through XII are grossly intact without focal deficits. Motor strength is 5/5 bilaterally. Plan: Discuss with Daughter , Margaret, over the phone. DC to SNF via ambulance tonight. (Patient was seen earlier today. Signature timestamp does not reflect patient encounter time) Jayant Mancera MD Discharge Discharge Disposition Patient was discharged to Discharge Diagnoses: Jayant Mancera MD Nov 04, 2016 17:43
== END 2016-11-04 22:10 | DRG 206 ==
LOC: EMR 16:10 → 2E 16:22 → EDBEDREQ 19:29 → 2E 11-01 10:52
DX: S22.31XA Fracture of one rib, right side, initial encounter for closed fracture (principal); I47.2 Ventricular tachycardia; M47.12 Other spondylosis with myelopathy, cervical region; I49.5 Sick sinus syndrome; J44.9 Chronic obstructive pulmonary disease, unspecified; S30.0XXA Contusion of lower back and pelvis, initial encounter; W18.2XXA Fall in (into) shower or empty bathtub, initial encounter; Y92.002 Bathroom of unspecified non-institutional (private) residence as the place of occurrence of the external cause; M48.02 Spinal stenosis, cervical region; I10 Essential (primary) hypertension; R07.89 Other chest pain; Z91.81 History of falling; Z95.0 Presence of cardiac pacemaker; Z86.73 Personal history of transient ischemic attack (TIA), and cerebral infarction without residual deficits; M25.551 Pain in right hip; R42 Dizziness and giddiness; J45.909 Unspecified asthma, uncomplicated; Z85.46 Personal history of malignant neoplasm of prostate; R53.1 Weakness
CPT/HCPCS: 36415; 70450; 71010; 72131; 72170; 78452; 80048; 80053; 80061; 81003; 82550; 83880; 84443; 84484; 85007; 85025; 85610; 85730; 93005; 93017; 93306; 93880; 94664; J2405